=== PATIENT | male | born 1995 | race Caucasian/White ===

== ENCOUNTER 2019-12-18 01:49 | Emergency (ER) | payer MEDICAID, SELFPAY ==
[2019-12-18 01:51] VITALS: BP 192/108; PULSE 76; RESP 24; TEMP 36.6; O2SAT 99; BMI 23.3
[2019-12-18 02:00] VITALS: BP 128/81; PULSE 81; RESP 16; O2SAT 98
[2019-12-18 02:18] LABS: Glucose Urine UA NEG (NEG); Leukocyte Esterase Urine NEG (NEG); Nitrite Urine NEG (NEG); Specific Gravity - Urine >= 1.030 (1.005-1.025); Urine Blood 3+ (NEG); Urine Ketones NEG (NEG); Urine Protein 1+ MG/DL (NEG-TRACE)
[2019-12-18 02:19] LABS: Appearance Urine HAZY; Color Urine PINK
--- NOTE | 2019-12-18 02:28 | PC.NURSE ---
PT TO ROOM WITH C/O RIGHT LOWER ABD PAIN RATING PAIN 10/10. PT CHG INTO GOWN AND AWAITING MD'S EVAL. HL PLACED TO [facility], LABS DRAWN TO LAB. PT MOVING CONSTANTLY IN STRETCHER. PT UP TO RESTROOM AND LEFT URINE SAMPLE TO LAB. PT AWAITING FOR FURTHER ORDERS,
[2019-12-18 02:30] LABS: Basophils Absolute Auto 0.1 X10*3/uL (0.0-0.2); Basophils Percent Auto 0.3 % (0-2); Eosinophils Absolute Auto 0.3 X10*3/uL (0.0-0.4); Eosinophils Percent Auto 1.4 % (0-4); Hematocrit 47.3 % (42-52); Hemoglobin 16.1 g/dl (14.0-18.0); Imm Gran Abs Auto 0.07 X10*3/uL (0.00-0.03); Imm Gran Pct Auto 0.4 % (0.0-0.4); Lymphocytes Percent Auto 36.4 % (20-40); MANUAL DIFF FLAG SCAN; Mean Platelet Volume 10.1 fL (9.4-12.4); Monocytes Absolute Auto 1.8 X10*3/uL (0.1-1.2); Monocytes Percent Auto 9.9 % (2-11); Neutrophils Absolute Auto 9.6 X10*3/uL (2.0-8.3); Neutrophils Percent Auto 51.6 % (45-73); Platelet Count 297 X10*3/uL (160-400); Red Cell Distribution Width 11.7 % (11.0-16.0); SCAN SMEAR FLAG 1; White Blood Count 18.5 X10*3/uL (4.8-10.8)
[2019-12-18 02:39] LABS: Calcium Oxalate Crystals Urine TRACE /LPF; Squamous Epithelial Cell Urine TRACE /LPF; WBC Urine 0 /HPF (0-4)
[2019-12-18 02:39] LABS: Lymphocytes Absolute Auto 6.7 X10*3/uL (1.2-4.9)
[2019-12-18] MEDS: fentaNYL citrate/PF 100 MCG/2 ML VIAL 25 MCG IVPUSH (02:39)
[2019-12-18 02:49] LABS: Prothrombin Time 12.3 SEC (10.8-13.0)
[2019-12-18 02:54] LABS: Anion Gap 15 (12-20); Blood Urea Nitrogen 9 mg/dL (9-16); Calcium 9.1 mg/dL (8.4-10.2); Carbon Dioxide 26 mmol/L (22-29); Chloride 104 mmol/L (96-108); Creatinine Clr Calc Pharmacy 118.5; Estimated Glomerular Filt Rate > 60; Glucose Random 104 mg/dL (60-115); Potassium 3.4 mmol/l (3.3-5.1); Sodium 142 mmol/L (135-145)
[2019-12-18 02:58] LABS: SLIDE REVIEW VERIFIED
--- NOTE | 2019-12-18 03:03 | ED.ABDPAIN ---
HPI - Abdominal Pain General Chief Complaint: Abdominal Pain Stated Complaint: Abd pain Time Seen by Provider: 12/18/19 02:31 Source: patient Mode of arrival: ambulatory Limitations: no limitations History of Present Illness HPI narrative: This is a 24-year-old male who presents with acute onset of right lower quadrant pain approximately 1-2 hours ago it is not been associated with any fever, chills but patient has had nausea and 1 episode of vomiting without any diarrhea or urinary pain/ burning / frequency. Related Data Previous Rx's Medication Instructions Recorded ketorolac 10 mg PO Q6H PRN 5 Days #20 tab 12/18/19 tamsulosin [Flomax] 0.4 mg PO BEDTIME #4 cap 12/18/19 Allergies Allergy/AdvReac Type Severity Reaction Status Date / Time Iodine and Iodide Containing Allergy Rash Verified 12/18/19 02:34 Produc Review of Systems Review of Systems Pertinent positives and negatives as stated in HPI 10 point review of systems is otherwise negative. Physical Exam Vital Signs: Vital Signs: Vital Signs Temp Pulse Resp BP Pulse Ox 12/18/19 04:00 78 16 138/78 100 12/18/19 03:54 74 16 148/78 H 100 12/18/19 03:43 84 16 130/82 98 12/18/19 02:00 81 16 128/81 98 12/18/19 01:51 97.9 F 76 24 H 192/108 H 99 Body Mass Index 23.3 VITAL SIGNS: Reviewed. GENERAL: Well developed, well nourished, moderate distress due to pain. HEAD: Normocephalic/atraumatic, EYES: PERRLA, EOMI intact without pain, no nystagmus/pallor/icterus noted EARS: Ext canals without abnormality, TMs non-bulging and non-erythematous NOSE: Nares patent bilateral OROPHARYNX: no oral lesions noted, posterior pharynx clear and non-erythematous without noted tonsillar enlargement/erythema/exudates NECK: Supple, no adenopathy LUNGS: Normal breath sounds. No adventitious sounds or accessory muscle use. SpO2<> CARDIOVASCULAR: Regular rate and rhythm without noted murmurs, no JVD or lower extremity edema. ABDOMEN: Soft, Right lower quadrant pain with localized rebound, non-distended with bowel sounds. No rigidity. No guarding. No palpable masses or hernias noted MUSCULOSKELETAL: No tenderness, deformities, or effusions noted on gross inspection. EXTREMITIES: No cyanosis, clubbing or edema. SKIN: Inspection of the skin reveals no rashes, ulcerations, jaundice, pallor, or petechiae. NEUROLOGIC: Alert and oriented x 4. Strength and sensation to light touch were grossly intact x 4. Course Course Course Narrative: This is a 24-year-old male with history and clinical presentation most consistent with acute appendicitis or renal colic. Doubt testicular torsion or inguinal hernia. Patient provided with pain medication On review of all laboratory investigations there is a noted leukocytosis and patient was treated with sepsis fluids, blood cultures, lactic acid, but CT scan showing 3 mm obstructing stone at the UVJ and significant improvement in pain after receiving pain medication. Antibiotics are not recommended for this type leukocytosis and patient will be discharged to home in stable condition with a pain regimen. MDM - Abdominal Pain Lab Data Result diagrams: 12/18/19 02:23 12/18/19 02:23 Labs: Lab Results 12/18/19 12/18/19 12/18/19 Range/Units 02:11 02:23 02:23 WBC 18.5 H (4.8-10.8) X10*3/uL RBC 5.20 (4.60-5.80) X10*6/uL Hgb 16.1 (14.0-18.0) g/dl Hct 47.3 (42-52) % MCV 91.0 (80-98) fL MCH 31.0 (27.0-33.0) pg MCHC 34.0 (31.0-36.0) g/dl RDW 11.7 (11.0-16.0) % Plt Count 297 (160-400) X10*3/uL MPV 10.1 (9.4-12.4) fL Immature Gran % (Auto) 0.4 (0.0-0.4) % Neut % (Auto) 51.6 (45-73) % Lymph % (Auto) 36.4 (20-40) % Floyd % (Auto) 9.9 (2-11) % Eos % (Auto) 1.4 (0-4) % Baso % (Auto) 0.3 (0-2) % Lymph # (Auto) 6.7 H (1.2-4.9) X10*3/uL Floyd # (Auto) 1.8 H (0.1-1.2) X10*3/uL Eos # (Auto) 0.3 (0.0-0.4) X10*3/uL Baso # (Auto) 0.1 (0.0-0.2) X10*3/uL Abs Immat Gran (auto) 0.07 H (0.00-0.03) X10*3/uL Absolute Neuts (auto) 9.6 H (2.0-8.3) X10*3/uL Absolute Nucleated RBC 0.000 (0.0-0.012) X10*3/uL Nucleated RBC % (auto) 0.0 (0.0-0.2) /100WBC Smear Tech's Comments VERIFIED PT (10.8-13.0) SEC INR (0.9-1.1) Hold Blue Top Sodium 142 (135-145) mmol/L Potassium 3.4 (3.3-5.1) mmol/l Chloride 104 (96-108) mmol/L Carbon Dioxide 26 (22-29) mmol/L Anion Gap 15 (12-20) BUN 9 (9-16) mg/dL Creatinine 0.85 (0.5-1.4) mg/dL Estim Creat Clear Calc 118.5 Estimated GFR > 60 Random Glucose 104 (60-115) mg/dL Lactic Acid (0.5-2.0) mmol/L Calcium 9.1 (8.4-10.2) mg/dL Urine Color PINK Urine Appearance HAZY Urine pH 6.0 (5.0-8.0) Ur Specific [place] >= 1.030 H (1.005-1.025) Urine Protein 1+ H (NEG-TRACE) MG/DL Urine Glucose (UA) NEG (NEG) MG/DL Urine Ketones NEG (NEG) MG/DL Urine Blood 3+ H (NEG) Urine Nitrite NEG (NEG) Ur Leukocyte Esterase NEG (NEG) Urine RBC 76-150 H (0) /HPF Urine WBC 0 (0-4) /HPF Ur Squamous Epith Cells TRACE /LPF Calcium Oxalate Crystal TRACE /LPF Urine Bacteria NONE /LPF Coronavirus (PCR) (Negative) 12/18/19 12/18/19 12/18/19 Range/Units 02:23 02:51 03:16 WBC (4.8-10.8) X10*3/uL RBC (4.60-5.80) X10*6/uL Hgb (14.0-18.0) g/dl Hct (42-52) % MCV (80-98) fL MCH (27.0-33.0) pg MCHC (31.0-36.0) g/dl RDW (11.0-16.0) % Plt Count (160-400) X10*3/uL MPV (9.4-12.4) fL Immature Gran % (Auto) (0.0-0.4) % Neut % (Auto) (45-73) % Lymph % (Auto) (20-40) % Floyd % (Auto) (2-11) % Eos % (Auto) (0-4) % Baso % (Auto) (0-2) % Lymph # (Auto) (1.2-4.9) X10*3/uL Floyd # (Auto) (0.1-1.2) X10*3/uL Eos # (Auto) (0.0-0.4) X10*3/uL Baso # (Auto) (0.0-0.2) X10*3/uL Abs Immat Gran (auto) (0.00-0.03) X10*3/uL Absolute Neuts (auto) (2.0-8.3) X10*3/uL Absolute Nucleated RBC (0.0-0.012) X10*3/uL Nucleated RBC % (auto) (0.0-0.2) /100WBC Smear Tech's Comments PT 12.3 (10.8-13.0) SEC INR 1.0 (0.9-1.1) Hold Blue Top SEE NOTE Sodium (135-145) mmol/L Potassium (3.3-5.1) mmol/l Chloride (96-108) mmol/L Carbon Dioxide (22-29) mmol/L Anion Gap (12-20) BUN (9-16) mg/dL Creatinine (0.5-1.4) mg/dL Estim Creat Clear Calc Estimated GFR Random Glucose (60-115) mg/dL Lactic Acid 1.4 (0.5-2.0) mmol/L Calcium (8.4-10.2) mg/dL Urine Color Urine Appearance Urine pH (5.0-8.0) Ur Specific [place] (1.005-1.025) Urine Protein (NEG-TRACE) MG/DL Urine Glucose (UA) (NEG) MG/DL Urine Ketones (NEG) MG/DL Urine Blood (NEG) Urine Nitrite (NEG) Ur Leukocyte Esterase (NEG) Urine RBC (0) /HPF Urine WBC (0-4) /HPF Ur Squamous Epith Cells /LPF Calcium Oxalate Crystal /LPF Urine Bacteria /LPF Coronavirus (PCR) NEGATIVE (Negative) Discharge Plan Discharge Clinical Impression: Renal colic Patient Disposition: Home, Self-Care Instructions: Renal Colic (ED) Additional Instructions: 1. Tylenol 1000 mg, orally, every 6 hours as needed for pain control. Do not exceed 4000 mg within 24 hours. 2. Increase fluid hydration especially water and avoid carbonated/caffeinated products. 3. please follow-up with urology at [facility] by calling their office in the morning to establish a follow-up appointment. The patient and/or family acknowledge understanding of results (as applicable), diagnosis, treatment plan, need for follow up, and symptoms that should prompt a return to the emergency room. Prescriptions: New ketorolac 10 mg tablet 10 mg PO Q6H PRN (Reason: pain) 5 Days Qty: 20 RF: 0 tamsulosin [Flomax] 0.4 mg capsule 0.4 mg PO BEDTIME Qty: 4 RF: 0 Referrals: Bill Jerry MD [Physician] - 2 days ( follow-up evaluation for 3 mm stone at the UVJ) [facility] Past Medical History Source: nursing notes reviewed Medical History No known health problems Social History Social History Smoked in Last 30 Days: No Advance Directives: No Advance Directives Information Provided: No
--- NOTE | 2019-12-18 03:05 | CT_ITS ---
EXAMINATION: CT ABDOMEN AND PELVIS WITHOUT CONTRAST CLINICAL INFORMATION: Right lower quadrant pain. COMPARISON: None. TECHNIQUE: Contiguous axial thin section helical images of the abdomen and pelvis were performed without oral or IV contrast. The data set was reformatted in the coronal and sagittal planes and reviewed on an independent workstation. DLP: 386 mGy-cm. FINDINGS: The visualized lung bases are clear. The visualized portions of the heart are unremarkable. The liver is of normal size and attenuation without focal lesions nor intrahepatic biliary ductal dilation. A normal gallbladder is identified. There is no wall thickening or discernible pericholecystic fluid. The spleen, pancreas, adrenal glands are unremarkable. Both kidneys are of normal size and attenuation without nephrolithiasis. There is right grade 2 hydroureteronephrosis secondary to a 3 mm obstructive right UVJ calculus. There is no abdominal free fluid. There is neither mesenteric nor retroperitoneal lymphadenopathy. Normal unopacified loops of small and large bowel are identified. There is no pelvic free fluid. The urinary bladder is unremarkable. There is neither pelvic nor inguinal lymphadenopathy. Bone windows: Neither sclerotic nor lytic bone lesions are identified. CT/CT abdomen pelvis wo con IMPRESSION: Right grade 2 hydroureteronephrosis secondary to a 3 mm obstructive right UVJ calculus. Automated exposure control (Care Dose) Adjustment of the mA and/or kv according to patient size (this includes techniques or standardized protocols for targeted exams where dose is matched to indication / reason for exam; i.e. extremities or head).
--- NOTE | 2019-12-18 03:42 | PC.NURSE ---
PT RESTLESS IN STRETCHER, NS UP AND RUNNING W/O SITE INTACT. PT RATING RIGHT LOWER ABD PAIN 08/23. MD AWARE. ADDITIONAL LABS BEING DRAWN AT THIS TIME. WILL CONTINUE TO MONITOR PT.
[2019-12-18 03:43] VITALS: BP 130/82; PULSE 84; RESP 16; O2SAT 98
[2019-12-18 03:46] LABS: Lactic Acid 1.4 mmol/L (0.5-2.0)
[2019-12-18] MEDS: 0.9 % Sodium Chloride 1,920 ML 999 ML IV (03:50)
[2019-12-18] MEDS: Ketorolac Tromethamine 15 MG/ML VIAL IVPUSH (03:50)
[2019-12-18 03:54] VITALS: BP 148/78; PULSE 74; RESP 16; O2SAT 100
--- NOTE | 2019-12-18 03:55 | PC.NURSE ---
PER PT'S REQUEST. STAFF WENT TO TO UPDATE JEN ROJAS. PT MEDICATED PT WITH PAIN MEDS PER EMAR. PT NOW RATING LOWER ABD PAIN 04/23. PT ALERT, RESPIRATIONS EASY, N/L. SKIN W/D. PT AWAITING FOR FURTHER ORDERS AND RESTING QUIETLY IN STRETCHER,
[2019-12-18 04:00] VITALS: BP 138/78; PULSE 78; RESP 16; O2SAT 100
[2019-12-18 04:14] LABS: SARS COV2 PCR INHOUSE NEGATIVE (Negative)
== END 2019-12-18 04:43 | disposition home or self-care (01) ==
PROVIDERS: Emergency Provider Student in an Organized Health Care Education/Training Program
DX: N23 Unspecified renal colic (principal); Z20.828 Contact with and (suspected) exposure to other viral communicable diseases; Z79.899 Other long term (current) drug therapy
CPT/HCPCS: 36415; 74176; 80048; 81001; 83605; 85025; 85610; 87040; 87147; 96374; 96375; 99284; J1885; J3010; U0003

== ENCOUNTER 2020-01-18 15:38 | Outpatient (REF) | payer MEDICAID, SELFPAY | END 2020-01-18 15:39 | disposition home or self-care (01) | LOC: HO.LAB 15:38 | PROVIDERS: Visit Provider Internal Medicine | DX: Z20.828 Contact with and (suspected) exposure to other viral communicable diseases (principal) | CPT/HCPCS: C9803; U0003 ==

== ENCOUNTER 2020-03-17 14:31 | Outpatient (REF) | payer MEDICAID, SELFPAY | END 2020-03-17 14:32 | disposition home or self-care (01) | LOC: HO.LAB 14:31 | PROVIDERS: Visit Provider Internal Medicine | DX: Z20.822 Contact with and (suspected) exposure to COVID-19 (principal) | CPT/HCPCS: 36415; C9803; U0003; U0005 ==

== ENCOUNTER 2020-11-22 12:53 | Emergency (ER) | payer MEDICAID, SELFPAY ==
[2020-11-22 13:56] VITALS: BP 129/74; PULSE 69; RESP 18; TEMP 36.6; O2SAT 99; BMI 22.3
--- NOTE | 2020-11-22 15:04 | ED_ITS ---
HPI - General Adult General Chief complaint: General Medical Stated complaint: hemorrhoid Time Seen by Provider: 11/22/20 14:37 Source: patient Mode of arrival: ambulatory Limitations: no limitations History of Present Illness HPI narrative: Patient had a sexual encounter on Tuesday evening with his male partner. He was receiving anal sex and did not use lubrication. [place] some pain during this encounter and after when wiping he noticed some blood on the toilet paper. He has had pain at the site since. He has one male partner. Uses condoms some of the time. No h/o STI Related Data Previous Rx's Medication Instructions Recorded ketorolac 10 mg tablet 10 mg PO Q6H PRN 5 Days #20 tab 12/18/19 tamsulosin 0.4 mg capsule (Flomax) 0.4 mg PO BEDTIME #4 cap 12/18/19 prednisone 20 mg tablet 20 mg PO DAILY #5 tab 12/19/19 doxycycline monohydrate 100 mg 100 mg PO BID #14 cap 11/22/20 capsule valacyclovir 1 gram tablet 1,000 mg PO BID #14 tab 11/22/20 (Valtrex) Allergies Allergy/AdvReac Type Severity Reaction Status Date / Time Iodine and Iodide Containing Allergy Rash Verified 12/18/19 02:34 Produc Review of Systems Review of Systems: Yes all other systems are reviewed and are negative Constitutional: Constitutional: Reports no additional constitutional complaints, Denies body ache(s), Denies chills, Denies fever(s), Denies headache(s) and Denies weakness Eyes: Eyes: Reports no additional eye complaints and Denies change in vision ENT: Reports system reviewed and no additional complaints, except as documented, Denies dizziness, Denies headache(s), Denies nasal congestion, Denies nasal discharge and Denies neck pain Cardiovascular: Cardiovascular: Reports no additional cardiovascular complaints, Denies chest pain, Denies leg edema and Denies dyspnea Respiratory: Respiratory: Reports no additional respiratory complaints, Denies cough and Denies dyspnea Gastrointestinal: Gastrointestinal: Reports no additional gastrointestinal complaints, Denies abdominal pain, Denies diarrhea, Denies nausea and Denies vomiting Comments: rectal pain blood when wiping rectum Genitourinary: Genitourinary: Denies urinary incontinence Musculoskeletal: Musculoskeletal: Reports no additional musculoskeletal complaints, Denies back pain, Denies arthralgias, Denies joint swelling, Denies neck pain, Denies numbness and Denies tingling Integumentary/Breasts: Skin/Breast: Reports system reviewed and no additional complaints, except as docu and Denies rash Neurologic: Reports system reviewed and no additional complaints, except as documented, Denies Abnormal speech present, Denies dizziness, Denies headache(s), Denies numbness, Denies tingling and Denies weakness PMFSH Past Medical History Attestation statement: The following information was validated with the patient. Source: old records reviewed and nursing notes reviewed Medical History No known health problems Social History Social History Advance Directives: No Advance Directives Information Provided: No Physical Exam Vital Signs: Vital Signs: Last Vital Signs Temp 97.9 F 11/22/20 13:56 Pulse 69 11/22/20 13:56 Resp 18 11/22/20 13:56 BP 129/74 11/22/20 13:56 Pulse Ox 99 11/22/20 13:56 Body Mass Index 22.3 Const: General: cooperative, healthy appearing, comfortable and no acute distress Orientation/consciousness: patient oriented x3 Limitations: no limitations HENMT: Head: Yes normal to inspection Ears: hearing grossly normal bilaterally General nose exam: Normal external nose present Face and sinus: Yes normal facial exam Mouth: Normal oral and palatal mucosa present Throat: Yes posterior oropharynx normal Eyes: General: appearance normal, both eyes and all related structures Pupils: Equal, round and reactive pupils present Neck: Neck: Yes normal visual inspection Chest: Chest palpation & inspection: normal inspection of the chest Resp: Effort & Inspection: normal respiratory effort Auscultation: clear to auscultation bilaterally Cardio: Rate: regular rate Rhythm: regular rhythm Peripheral pulses: Peripheral pulses 2+ throughout GI: Other: Cassie QUINTANILLA present Visual inspection of anus shows NO hemorrhoid. At the the 12 o clock position there is a solitary lesion with erythematous base. No additional lesions. Exquisitely tender per patient. NO active bleeding noted. Inspection: Yes normal to inspection Palpation (GI): Soft to palpation and nontender Auscultation: normal bowel sounds Back/Spine/Pelvis: Thoracic/Lumbar Spine: thoracic and lumbar spine normal to inspection Skin: General skin exam: no rashes or lesions noted Neuro: General: patient oriented x3, no focal motor deficits and normal sensation to monofilament Cranial nerves: Yes Equal, round and reactive pupils present Cognition (Neuro): normal cognition Speech: No Abnormal speech present Gait exam (Neuro): Normal gait present Motor exam (neuro): 5/5 motor strength present throughout Extrem: General: Yes normal to inspection Course Course Course Narrative: Painful anus w/ intermittent blood noted on TP after receiving anal sex Tuesday evening. On exam patient has a solitary lesion noted on the anus. We discussed this may be HSV or a fissure as patient tells me he felt pain during intercourse and did not use lubrication. Viral culture obtained from lesion. Requesting STI testing and treatment. Will send CT NG (given ceftriaxone 500mg IM x1 in ED. Doxy sent to pharmacy) Sent HIV and chlaymdia testing (d/w with patient and will hold on treatment. Reviewed worrisome signs/symptoms with patient and when to return to ED. Comfortable with discharge home. Medical Decision Making Medical Records Medical records reviewed: Yes I reviewed the patient's medical records. Lab Data Lab results reviewed: Yes I reviewed the patient's lab results. Discharge Plan Discharge Clinical Impression: Concern about STD in male without diagnosis, Anal lesion Patient Disposition: Home, Self-Care Instructions: Sexually Transmitted Diseases (ED), Safe Sex Practices (ED), Rectal Pain (ED) Additional Instructions: This may be a herpes lesion. We sent a test for this. We will call you if it is positive. We are treating you prophylactically It may also be a fissure which is a crack in the skin which may be caused by no lubrication during intercourse. if this is the case it will heal on its own You were tested for all STD's. We will call you if positive. We are treating you prophylactically with ceftriaxone (you received this as a shot in the ED) and doxycycline You should abstain from sexual intercourse until your test results are back and the lesion is healed Prescriptions: New valacyclovir [Valtrex] 1 gram tablet 1,000 mg PO BID Qty: 14 RF: 0 doxycycline monohydrate 100 mg capsule 100 mg PO BID Qty: 14 RF: 0 No Action prednisone 20 mg tablet 20 mg PO DAILY Qty: 5 RF: 0 ketorolac 10 mg tablet 10 mg PO Q6H PRN (Reason: pain) 5 Days Qty: 20 RF: 0 tamsulosin [Flomax] 0.4 mg capsule 0.4 mg PO BEDTIME Qty: 4 RF: 0 Referrals: Physician,None [Primary Care Provider] - 2 days
[2020-11-22] MEDS: cefTRIAXone sodium 500 MG, Lidocaine HCl 1 % MPF 1 ML IM (15:25)
[2020-11-24 00:56] LABS: CT PCR NOT DETECTED (Not Detect.); NG PCR DETECTED (Not Detect.)
[2020-11-24 09:21] LABS: Syphilis Screen Nonreactive (Nonreactive)
[2020-11-25 08:58] LABS: HIV AB/AG Nonreactive (Nonreactive); HIV Num 1 0.07 S/CO (0.00-0.99)
== END 2020-11-22 15:43 | disposition home or self-care (01) ==
PROVIDERS: Nurse Practitioner Family; Emergency Provider Emergency Medicine Emergency Medical Services
DX: K62.9 Disease of anus and rectum, unspecified (principal); K62.89 Other specified diseases of anus and rectum; Z20.2 Contact with and (suspected) exposure to infections with a predominantly sexual mode of transmission; Z79.899 Other long term (current) drug therapy
CPT/HCPCS: 36415; 86780; 87255; 87389; 87491; 87591; 96372; 99283; 99284; J0696

== ENCOUNTER 2022-01-22 18:24 | Emergency (ER) | payer MEDICAID, SELFPAY ==
[2022-01-22 19:08] VITALS: BP 151/92; PULSE 94; RESP 18; TEMP 37.8; O2SAT 98; BMI 21.6
--- NOTE | 2022-01-22 19:09 | ED.GENADULT ---
HPI - General Adult General Chief complaint: Nausea/Vomiting/Diarrhea Stated complaint: vomit, coughing, covid and rsv test Time Seen by Provider: 01/22/22 21:24 Source: patient Mode of arrival: ambulatory Limitations: no limitations History of Present Illness HPI narrative: 26-year-old male with no known medical history presents 2 days of body aches and pains, malaise, fatigue, shortness of breath, dry cough, myalgias, chest discomfort with coughing. Patient reports decreased appetite and poor p.o. intake. No known sick contacts. Not vaccinated against COVID flu. 02/17 PPD smoker. Denies chest pain, headache, vision changes, dizziness, weakness, nausea, vomiting, abdominal pain. Related Data Previous Rx's Medication Instructions Recorded ketorolac 10 mg tablet 10 mg PO Q6H PRN pain 5 days #20 12/18/19 tabs tamsulosin 0.4 mg capsule (Flomax) 0.4 mg PO BEDTIME #4 caps 12/18/19 prednisone 20 mg tablet 20 mg PO DAILY #5 tabs 12/19/19 doxycycline monohydrate 100 mg 100 mg PO BID #14 caps 11/22/20 capsule valacyclovir 1 gram tablet 1,000 mg PO BID #14 tabs 11/22/20 (Valtrex) albuterol sulfate 90 mcg/actuation 2 inh inhalation Q4-6H PRN 01/22/22 breath activated powder inhaler shortness of breath or wheezing #1 ea Allergies Allergy/AdvReac Type Severity Reaction Status Date / Time Iodine and Iodide Containing Allergy Rash Verified 01/22/22 19:12 Produc Review of Systems Review of Systems: Constitutional : No Weight loss, No Fever, No Chills, + Fatigue, + Malaise ENT/Mouth : No sore throat, No Rhinorrhea Eyes: No Eye Pain, No Swelling, No Redness Cardiovascular : No Chest Pain, + SOB, No Dyspnea on Exertion, No Orthopnea, No Edema, No Palpitations Respiratory : + Cough, No Sputum, No Wheezing Gastrointestinal : No Nausea, No Vomiting, No Diarrhea, No Constipation, No abdominal Pain, No Hematochezia, No Melena Genitourinary : No Dysuria, No Urinary Frequency, No Hematuria, Musculoskeletal : No joint pain, + Myalgias, No Joint Swelling Skin : No Skin Lesions, No rash Neuro : No Weakness, No Numbness, No Dizziness, No Headache Psych : No Anxiety/Panic, No Depression All other systems reviewed and are negative Yes all other systems are reviewed and are negative [facility] Past Medical History Medical History No known health problems Physical Exam ED Vital Signs: Vital Signs - 24 hr 01/22/22 19:08 Temperature 100.1 F Pulse Rate 94 Respiratory Rate 18 Blood Pressure 151/92 H Pulse Oximetry 98 Oxygen Delivery Method Room Air BMI result Body Mass Index 21.6 Course Course Course Narrative: RME: 26-year-old male with no known medical history presents 2 days of body aches and pains, malaise, fatigue, shortness of breath, dry cough, myalgias, chest discomfort with coughing. Patient reports decreased appetite and poor p.o. intake. No known sick contacts. Not vaccinated against COVID flu. 02/17 PPD smoker. Physical exam benign vital signs stable T: 100.1 F ( Tylenol ordered). Appears comfortable Plan at this time flu/COVID/RSV. Reevaluation(s) Reevaluation #1: Patient noted to be positive for influenza. Educated him on treatment plan. Explained to him he does not qualify for Tamiflu as symptoms have been ongoing for greater than 24 hours. Will discharge him home with an albuterol inhaler. Educated on supportive measures advised him to return with any new or worsening symptoms. At time of discharge patient is saturating 99% even after ambulation. Patient denies chest pain, shortness of breath. Time: 21:30 Medical Decision Making Medical Decision Making [facility] Narrative: 2127 26-year-old presents flu-like symptoms x3 days Physical examination benign. Patient's temperature a 100.1 degrees. All other vital signs stable Likely viral infection. I do not suspect ACS, PE or pneumonia. With if Tylenol for symptoms. Will obtain viral panels. Discharge Plan Discharge Clinical Impression: Influenza A Patient Disposition: Home, Self-Care Instructions: Influenza (ED), Flu Shot (Vaccine) for Adults (ED) Additional Instructions: Take your medications as prescribed. If you were prescribed antibiotics today, it is important that you take your medication to their entirety, do not skip any doses, do not finish them early. Follow-up with your primary care provider this week. Return to the emergency department with new or worsening symptoms. Such as fevers, chills, chest pain, shortness of breath, nausea, vomiting, dizziness, headache, vision changes, lethargy In case of emergency call 911 You tested positive for influenza. However, due to length of symptoms he did not qualify for Tamiflu. You can take ibuprofen every 6 hours, Tylenol every 4 as needed for pain or discomfort. Inhaler has been sent to your pharmacy use this for shortness of breath. Prescriptions: New albuterol sulfate 90 mcg/actuation aerosol powdr breath activated 2 inh inhalation Q4-6H PRN (Reason: shortness of breath or wheezing) Qty: 1 0RF No Action prednisone 20 mg tablet 20 mg PO DAILY Qty: 5 0RF ketorolac 10 mg tablet 10 mg PO Q6H PRN (Reason: pain) 5 Days Qty: 20 0RF tamsulosin [Flomax] 0.4 mg capsule 0.4 mg PO BEDTIME Qty: 4 0RF valacyclovir [Valtrex] 1 gram tablet 1,000 mg PO BID Qty: 14 0RF doxycycline monohydrate 100 mg capsule 100 mg PO BID Qty: 14 0RF Referrals: Physician,Unknown J [Primary Care Provider] - 2 days Stand Alone Forms: Work/School Release
[2022-01-22 20:19] LABS: Influenza A PCR POSITIVE (Negative); Influenza B PCR NEGATIVE (Negative); Resp Syncy Virus RNA Qual PCR NEGATIVE (Negative); SARS COV2 PCR INHOUSE NEGATIVE (Negative)
[2022-01-22] MEDS: Acetaminophen 325 MG TABLET 650 MG PO (21:34)
== END 2022-01-22 21:50 | disposition home or self-care (01) ==
PROVIDERS: Physician Assistant; Emergency Provider Emergency Medicine
DX: J10.1 Influenza due to other identified influenza virus with other respiratory manifestations (principal); R11.2 Nausea with vomiting, unspecified; R19.7 Diarrhea, unspecified; R06.02 Shortness of breath; R05.9 Cough, unspecified; M79.10 Myalgia, unspecified site; R07.89 Other chest pain; Z20.822 Contact with and (suspected) exposure to COVID-19; Z79.899 Other long term (current) drug therapy
CPT/HCPCS: 0241U; 99283

== ENCOUNTER 2022-07-05 05:07 | Emergency (ER) | payer MEDICAID, SELFPAY ==
[2022-07-05 05:31] VITALS: BP 130/84; PULSE 70; RESP 18; TEMP 37; O2SAT 99; BMI 25.5
--- NOTE | 2022-07-05 05:51 | ED_ITS ---
HPI - Dental/Oral General Chief complaint: Dental/Oral Stated complaint: Chipped tooth Time Seen by Provider: 07/05/22 05:39 Source: patient Mode of arrival: ambulatory Limitations: no limitations History of Present Illness HPI Narrative: Patient comes to the emergency room complaining of a chipped tooth in the mandibular side on the left. It has been ongoing for about a year. However, over the last few days, he has been having pain which has not happened before. Patient has an appointment pending with the dentist. Related Data Previous Rx's Medication Instructions Recorded ketorolac 10 mg tablet 10 mg PO Q6H PRN pain 5 days #20 12/18/19 tabs tamsulosin 0.4 mg capsule (Flomax) 0.4 mg PO BEDTIME #4 caps 12/18/19 prednisone 20 mg tablet 20 mg PO DAILY #5 tabs 12/19/19 doxycycline monohydrate 100 mg 100 mg PO BID #14 caps 11/22/20 capsule valacyclovir 1 gram tablet 1,000 mg PO BID #14 tabs 11/22/20 (Valtrex) albuterol sulfate 90 mcg/actuation 2 inh inhalation Q4-6H PRN 01/22/22 breath activated powder inhaler shortness of breath or wheezing #1 ea penicillin V potassium 500 mg 500 mg PO TID #30 tabs 07/05/22 tablet Allergies Allergy/AdvReac Type Severity Reaction Status Date / Time Iodine and Iodide Containing Allergy Rash Verified 07/05/22 05:30 Produc Review of Systems Review of Systems: Constitutional : No Weight loss, No Fever, No Chills, No Night Sweats, No Fatigue, No Malaise ENT/Mouth : Complaining of dental pain left mandibular side No Hearing loss, No Ear Pain, No Nasal Congestion, No Sinus Pain, No Hoarseness, No sore throat, No Rhinorrhea, No Swallowing Difficulty Eyes: No Eye Pain, No Swelling, No Redness, No Foreign Body, No Discharge, No Vision Changes Cardiovascular : No Chest Pain, No SOB, No Dyspnea on Exertion, No Orthopnea, No Edema, No Palpitations Respiratory : No Cough, No Sputum, No Wheezing, No Smoke Exposure, No Dyspnea Gastrointestinal : No Nausea, No Vomiting, No Diarrhea, No Constipation, No abdominal Pain, No Hematochezia, No Melena Genitourinary : no irregular bleeding, No Dysuria, No Urinary Frequency, No Hematuria, No Urinary Incontinence, No Urgency, No Flank Pain, No Urinary Flow Changes, No Hesitancy Musculoskeletal : No joint pain, No Myalgias, No Joint Swelling Skin : No Skin Lesions, No rash Neuro : No Weakness, No Numbness, No Paresthesias, No Loss of Consciousness, No Dizziness, No Headache Psych : No Anxiety/Panic, No Depression, No SI/HI/AH/VH, No Social Issues, Heme/Lymph: No Bruising, No Bleeding,No Lymphadenopathy Endocrine : No Polyuria, No Polydipsia, No Temperature Intolerance [facility] Past Medical History Medical History No known health problems Social History Social History Advance Directives: No Advance Directives Information Provided: No Physical Exam Vital Signs: Vital Signs: Last Vital Signs Temp 98.6 F 07/05/22 05:31 Pulse 70 07/05/22 05:31 Resp 18 07/05/22 05:31 BP 130/84 07/05/22 05:31 Pulse Ox 99 07/05/22 05:31 O2 Del Method Room Air 07/05/22 05:31 BMI result Body Mass Index 25.5 Const: Other: Appearance: Alert. Oriented X3. No acute distress. Eyes: Pupils equal, round and reactive to light. ENT: Pharynx normal. Poor dentition is specially in the mandibular side on the left, no obvious abscesses that could possibly be drained Neck: Normal inspection. Neck supple. No lymph nodes noted. No crepitus CVS: Normal heart rate and rhythm. Pulses normal. Normal S1 and S2 Respiratory: No respiratory distress. Breath sounds normal. No Wheezing. No rales Abdomen: Soft and nontender. No rigidity. No distention. Skin: Skin warm and dry. Normal skin color. Normal skin turgor. Extremities: No lower extremity edema. No Lacerations. No Rash Neuro: Oriented X 3. No motor deficit. No sensory deficit. Moving all extremities. No slurred speech. CN 2 through 12 grossly intact Psych: calm, cooperative, normal affect Medical Decision Making Medical Decision Making MDM Narrative: -patient was given 1 dose of IM Toradol and p.o. penicillin the emergency room. Patient will follow up with his dentist Discharge Plan Discharge Clinical Impression: Toothache Patient Disposition: Home, Self-Care Instructions: Toothache (ED) Additional Instructions: Please follow-up with your primary care physician tomorrow. If you have any worsening or new symptoms, please return to the emergency room or call 911 Prescriptions: New penicillin V potassium 500 mg tablet 500 mg PO TID Qty: 30 0RF No Action prednisone 20 mg tablet 20 mg PO DAILY Qty: 5 0RF ketorolac 10 mg tablet 10 mg PO Q6H PRN (Reason: pain) 5 Days Qty: 20 0RF tamsulosin [Flomax] 0.4 mg capsule 0.4 mg PO BEDTIME Qty: 4 0RF valacyclovir [Valtrex] 1 gram tablet 1,000 mg PO BID Qty: 14 0RF doxycycline monohydrate 100 mg capsule 100 mg PO BID Qty: 14 0RF albuterol sulfate 90 mcg/actuation aerosol powdr breath activated 2 inh inhalation Q4-6H PRN (Reason: shortness of breath or wheezing) Qty: 1 0RF
[2022-07-05] MEDS: Ketorolac Tromethamine 60 MG/2 ML VIAL IM (05:59)
[2022-07-05] MEDS: Penicillin V Potassium 250 MG TABLET 500 MG PO (05:59)
== END 2022-07-05 06:06 | disposition home or self-care (01) ==
PROVIDERS: Emergency Provider Emergency Medicine
DX: K08.89 Other specified disorders of teeth and supporting structures (principal)
CPT/HCPCS: 96372; 99283; 99284; J1885

== ENCOUNTER 2022-10-10 21:32 | Emergency (ER) | payer OTHER, SELFPAY ==
[2022-10-10 21:41] VITALS: BP 132/88; PULSE 93; RESP 18; TEMP 36.6; O2SAT 97; BMI 24.1
--- OUTSIDE RECORDS SUMMARY | 2022-10-10 22:55 | XMS_ITS | Continuity of Care Document ---
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 Phone Not on Staff, PCP Primary Care Physician Unavail able Encounter [facility] Date(s): 03/16/22 - 03/16/[address] [id number]- Discharge Disposition: A-D/C Home Attending Physician: Jorge Moss MD Admitting Physician: Jorge Moss MD Referring Physician: Not on Staff, Referring MD Allergies, Adverse Reactions, Alerts Substance Reaction Severity Status iodine topical Active Medications ofloxacin 0.3% ophthalmic solution 2 drops, Eyes, Both, 4 times a day, for 5 days, # 10 mL, 0 Refills, Acute 03/21/22 21:14:00 EST, 03/16/22 21:14:00 EST, Solution, [id number], Partial fill upon patient request if theprescription is for a schedule II opioid drug., 2 d... Start Date: 03/16/22 Stop Date: 03/21/22 Status: Ordered Vital Signs Most recent to oldest [Reference Range]: 1 2 Height 165 cm (03/16/22 7:22 PM) 165 cm (03/16/22 7:20 PM) Weight 60 kg (03/16/22 7:22 PM) 60 kg (03/16/22 7:20 PM) Oxygen Saturation [94-100 %] 99 % (03/16/22 7:20 PM) Pulse Rate [55-90 bpm] 89 bpm (03/16/22 7:20 PM) Body Mass Index [18.5-24.99 kg/m2] 22.04 kg/m2 (03/16/22 7:20 PM) Blood Pressure [90-138/55-84 mm Hg] 136/ 78mm Hg (03/16/22 7:20 PM) Respiratory Rate [16-30 br/min] 18 br/mi n (03/16/22 7:20 PM) Temperature [96.8-100.4 DegF] 98.3 DegF (03/16/22 7:20 PM) Dry Weight 60 kg (03/16/22 7:22 PM) 60 kg (03/16/22 7:20 PM) Social History Social History Type Response Smoking Status Never (less than 100 in lifetime) entered on: 07/24/18 Sex Note * Keli Garner: PERFORM, SIGN, VERIFY Event Display: Patient Education Handout Authored Date: [id number] * Keli Garner: PERFORM Event Display: Patient Education Leaflets Authored Date: [id number] Corneal Abrasion ?? [id number] Corneal Abrasion You have a scratch or scrape (abrasion) on your cornea. The cornea is the protective covering in the front of the eye. It helps focus light on the retina. This sensitive area is very painful when injured. Your eye may be light sensitive and make tears frequently. Also, your vision may be blurry until the injury heals. This part of the body heals quickly. You can expect the pain to go away within 24 to 48 hours. If the abrasion is large or deep, your healthcare provider may apply an eye patch, although this is not always done. Antibiotic ointment or eye drops may also be used to prevent infection. Numbing drops may be used to relieve the pain temporarily so that your eyes can be examined., But these drops can???t be prescribed for home use because that would prevent healing and lead to more serious problems. Also, if you can???t feel your eye, there is a chance of accidentally injuring it further without knowing it. Home care ??? A cold pack may be applied over the eye (or eye patch) for 20 minutes at a time to reduce pain. To make a cold pack, put ice cubes in a plastic bag that seals at the top. Wrap the bag in a clean, thin towel or cloth. ??? You may use acetaminophen or ibuprofen to control pain unless another pain medicine was prescribed. If you have chronic liver or kidney disease, talk with your healthcare provider before using these medicines. Also talk with your provider if you have ever had a stomach ulcer or gastrointestinal bleeding. ??? Rest your eyes and don???t read until symptoms are gone. ??? If you use contact lenses, don???t wear them until all symptoms are gone. ??? If your vision is affected by the corneal abrasion or if an eye patch was applied, don???t drive a motor vehicle oroperate machinery until all symptoms are gone. You may have trouble judging distances using only one eye. ??? If your eyes are sensitive to light, try wearing sunglasses. Or stay indoors until symptoms go away. ?? Follow-up care Follow up with your healthcare provider, or as advised. ??? If no patch was put on your eye and thepain continues for more than 48 hours, you should have another exam. Contact your healthcare provider to arrange this. ??? If your eye was patched and you were asked to remove the patch yourself, contact your healthcare provider if you still have pain after the patch is removed. ??? If you were given a return appointment for patch removal and re-exam, be sure to keep the appointment. Leaving the patch in place longer than advised could be harmful. ?? When to seek medical advice Call your healthcare provider right away if any of the following occur: ??? Eye pain gets worse or does not get better after 24 hours ??? Discharge from the eye ??? Redness of the eye or swelling of the eyelids gets worse ??? Vision gets worse ??? Symptoms get worse after the abrasion has healed ?? Last Reviewed Date: 2021 ?? 6221-4173 [employer]. All rights reserved. This information is not intended as a substitute for professional medical care. Always follow your healthcare professional's instructions. ?? Patient Care team information Care Team Personnel Name: Not on Staff, PCP Position: [facility] Physician (General Medicine) Member Role: PCP Name: Cinthya Rosales RN Position: [facility] ED RN W/OE and Tasks Member Role: Research Name: Jorge Moss MD Position: [facility] ED Medicine MD Member Role: Admitting Physician Address: Address: [address] [place] [address] Emergency Medicine [address] Name: Keli Garner Position: [facility] Associate Professional Member Role: Physician Jockey Valet Address: Address: [address] [place] [address] [place] [address]- [place] Care Team Related Persons Name: GEORGE CURIEL Address: home [address] [place] [id number] Name: KARLENE CURIEL Address: home [address] [place] [id number] Name: RAY CURIEL Address: home [address] [address] Name: GEORGE JUAREZ Address: home [address] [place] [id number]
--- OUTSIDE RECORDS SUMMARY | 2022-10-10 22:55 | XMS_ITS | Continuity of Care Document ---
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 Phone Not on Staff, PCP Primary Care Physician Unavail able Encounter [facility] Date(s): 10/09/19 - 10/09/[address] [address]- [facility] Encounter Diagnosis Superficial abrasion(Final) - 10/09/19 Discharge Disposition: A-D/C Home Attending Physician: Shahbaz Lopez DO Admitting Physician: Shahbaz Lopez DO Referring Physician: Not on Staff, Referring MD Allergies, Adverse Reactions, Alerts Substance Reaction Severity Status iodine topical Active Medications No Known Medications Vital Signs Most recent to oldest [Reference Range]: 1 Height 165 cm (10/09/19 1:29 AM) Weight 68.4 kg (10/09/19 1:29 AM) Oxygen Saturation [94-100 %] 99 % (10/09/19 1:29 AM) Pulse Rate [55-90 bpm] 71 bpm (10/09/19 1:29 AM) Blood Pressure [90-138/55-84 mm Hg] 125/ 76mm Hg (10/09/19 1:29 AM) Respiratory Rate [16-30 br/min] 16 br/mi n (10/09/19 1:29 AM) Temperature [96.8-100.4 DegF] 97.9 DegF (10/09/19 1:29 AM) Mode of Delivery (Oxygen) Room air (10/09/19 1:29 AM) Temperature Route Oral (10/09/19 1:29 AM) Dry Weight 68.4 kg (10/09/19 1:29 AM) Weight Obtained Via Standing scale (10/09/19 1:29 AM) Dry Weight Obtained Via Standing scale (10/09/19 1:29 AM) Social History Social History Type Response Smoking Status Never (less than 100 in lifetime) entered on: 07/24/18 Sex
--- NOTE | 2022-10-10 23:35 | ED.DENTAL ---
HPI - Dental/Oral General Chief complaint: Dental/Oral Stated complaint: mouth pain Time Seen by Provider: 10/10/22 22:56 Source: patient and family Mode of arrival: ambulatory Limitations: no limitations History of Present Illness HPI Narrative: Diffuse mouth pain, gum pain, widespread dental decay patient with longstanding dental issue having problem to find a dentist accept his insurance. No fever, no chills for Related Data Previous Rx's Medication Instructions Recorded ketorolac 10 mg tablet 10 mg PO Q6H PRN pain 5 days #20 12/18/19 tabs tamsulosin 0.4 mg capsule (Flomax) 0.4 mg PO BEDTIME #4 caps 12/18/19 prednisone 20 mg tablet 20 mg PO DAILY #5 tabs 12/19/19 doxycycline monohydrate 100 mg 100 mg PO BID #14 caps 11/22/20 capsule valacyclovir 1 gram tablet 1,000 mg PO BID #14 tabs 11/22/20 (Valtrex) albuterol sulfate 90 mcg/actuation 2 inh inhalation Q4-6H PRN 01/22/22 breath activated powder inhaler shortness of breath or wheezing #1 ea penicillin V potassium 500 mg 500 mg PO TID #30 tabs 07/05/22 tablet amoxicillin 500 mg tablet 500 mg PO BID #20 tabs 10/10/22 ibuprofen 800 mg tablet 800 mg PO Q8H PRN pain #20 tabs 10/10/22 Allergies Allergy/AdvReac Type Severity Reaction Status Date / Time Iodine and Iodide Containing Allergy Rash Verified 10/10/22 21:41 Produc Review of Systems Review of Systems: All other systems are reviewed and are negative Constitutional: Reports as per HPI and Reports no additional constitutional complaints Eyes: Reports as per HPI and Reports no additional eye complaints Reports system reviewed and no additional complaints, except as documented Cardiovascular: Reports as per HPI and Reports no additional cardiovascular complaints Respiratory: Reports as per HPI and Reports no additional respiratory complaints Gastrointestinal: Reports as per HPI and Reports no additional gastrointestinal complaints Genitourinary: Reports no additional female genitourinary complaints Musculoskeletal: Reports no additional musculoskeletal complaints Skin/Breast: Reports system reviewed and no additional complaints, except as docu Psychiatric: Reports no additional psychiatric complaints Endocrine: Reports no additional endocrine complaints Hematologic/Lymphatic: Reports no additional hematologic/lymphatic complaints Allergic/Immunologic: Reports no additional allergic/immunologic complaints Reports system reviewed and no additional complaints, except as documented and Reports Abnormal speech present [facility] Past Medical History Medical History No known health problems Social History Social History Advance Directives: No Advance Directives Information Provided: No Physical Exam Vital Signs: Vital Signs: Last Vital Signs Temp 97.8 F 10/10/22 21:41 Pulse 93 10/10/22 21:41 Resp 18 10/10/22 21:41 BP 132/88 10/10/22 21:41 Pulse Ox 97 10/10/22 21:41 O2 Del Method Room Air 10/10/22 21:41 BMI result Body Mass Index 24.1 Vital signs have been reviewed as appeared to be correct. Blood pressure normal. Heart rate normal. Respiration rate normal. Temperature normal. Oxygen saturation normal. Appearance: Alert. Oriented X3. No acute distress. Head: Normal external exam. Normocephalic. Atraumatic. No Herrera signs noted. No raccoon eyes noted. Dental exam: Widespread gum swelling with tenderness, with widespread dental decay, no discrete dental abscess. Eyes: PERRLA. EOMI. Conjunctiva and sclera normal. Eyelids normal. ENT: TM's Normal. Pharynx normal. Uvula midline. Moist mucous membranes. No trismus noted. No drooling noted. No muffled voice noted. Neck: Normal inspection. Neck supple. FROM. No adenopathy. Thyroid Normal. No meningeal signs. No neck mass noted. CVS: Normal heart rate and rhythm. Heart sound normal. No murmurs noted. Pulses normal throughout. Respiratory: No respiratory distress. Painless inspiration. Breath sounds normal. No wheezes/rales/rhonchi noted. Chest nontender. No accessory muscle usage noted or decreased air movement noted. Abdomen: Soft and nontender. Bowel sounds normal in all 4 quadrants. No distention noted. No organomegaly noted. No visible injury noted. Back: No CVA tenderness. Full range of motion noted. Skin: Skin warm and dry. Normal skin color. Normal skin turgor. No rashes/lesions/lacerations noted. Extremities: No lower extremity edema. Extremities exhibit normal range of motion. Extremities nontender. Neuro: Oriented X 3. Cranial nerve exam: II-XII are grossly intact No motor deficit. No sensory deficit. Reflexes normal. Medical Decision Making Medical Decision Making MDM Narrative: Widespread gingivitis and dental decay will start the patient on amoxicillin/NSAIDs and follow-up with dentist. Differential Diagnosis Differential Diagnoses: The differential diagnosis associated with the presentation includes (Gingivitis, dental abscess, dental decay) Discharge Plan Discharge Clinical Impression: Toothache, Dental caries, Gingivitis Patient Disposition: Home, Self-Care Instructions: Gingivitis (ED) Additional Instructions: Follow-up with your dentist [facility] Prescriptions: New amoxicillin 500 mg tablet 500 mg PO BID Qty: 20 0RF ibuprofen 800 mg tablet 800 mg PO Q8H PRN (Reason: pain) Qty: 20 0RF No Action prednisone 20 mg tablet 20 mg PO DAILY Qty: 5 0RF ketorolac 10 mg tablet 10 mg PO Q6H PRN (Reason: pain) 5 Days Qty: 20 0RF tamsulosin [Flomax] 0.4 mg capsule 0.4 mg PO BEDTIME Qty: 4 0RF valacyclovir [Valtrex] 1 gram tablet 1,000 mg PO BID Qty: 14 0RF doxycycline monohydrate 100 mg capsule 100 mg PO BID Qty: 14 0RF albuterol sulfate 90 mcg/actuation aerosol powdr breath activated 2 inh inhalation Q4-6H PRN (Reason: shortness of breath or wheezing) Qty: 1 0RF penicillin V potassium 500 mg tablet 500 mg PO TID Qty: 30 0RF
[2022-10-10 23:48] VITALS: BP 143/86; PULSE 69; RESP 16; TEMP 36.3; O2SAT 98
[2022-10-10] MEDS: oxyCODONE HCl Immed Release 5 MG TABLET PO (23:50)
[2022-10-10] MEDS: Ibuprofen 600 MG TABLET PO (23:51)
[2022-10-10] MEDS: Amoxicillin 500 MG CAPSULE PO (23:51)
--- NOTE | 2022-10-10 23:54 | PC.NURSE ---
Medicated per Mar, Reviewed discharge instruction with pt, pt verbalized understanding. no sign distressed.
== END 2022-10-10 23:57 | disposition home or self-care (01) ==
PROVIDERS: Emergency Provider Emergency Medicine
DX: K08.89 Other specified disorders of teeth and supporting structures (principal); K05.10 Chronic gingivitis, plaque induced
CPT/HCPCS: 99283; 99284

== ENCOUNTER 2022-10-26 03:45 | Emergency (ER) | payer SELFPAY ==
[2022-10-26 03:51] VITALS: BP 135/87; PULSE 69; RESP 20; TEMP 36.7; O2SAT 98; BMI 27.3
[2022-10-26 04:18] LABS: COVID-19 Test Negative (Negative); IDNOW Serial# 6674DD1D
[2022-10-26 05:15] LABS: Influenza A PCR NEGATIVE (Negative); Influenza B PCR NEGATIVE (Negative); Resp Syncy Virus RNA Qual PCR NEGATIVE (Negative); SARS COV2 PCR INHOUSE NEGATIVE (Negative)
--- NOTE | 2022-10-26 05:55 | ED.GENADULT ---
HPI - General Adult General Chief complaint: General Medical Stated complaint: Vomiting, ?Covid Time Seen by Provider: 10/26/22 05:43 Source: patient Mode of arrival: ambulatory Limitations: no limitations History of Present Illness HPI narrative: Patient was at work took antibiotic empty stomach for toothache and vomited 3 times staff was concerned because another staff member was positive for COVID patient denies any cough no body abdominal pain feeling much better now Related Data Previous Rx's Medication Instructions Recorded ketorolac 10 mg tablet 10 mg PO Q6H PRN pain 5 days #20 12/18/19 tabs tamsulosin 0.4 mg capsule (Flomax) 0.4 mg PO BEDTIME #4 caps 12/18/19 prednisone 20 mg tablet 20 mg PO DAILY #5 tabs 12/19/19 doxycycline monohydrate 100 mg 100 mg PO BID #14 caps 11/22/20 capsule valacyclovir 1 gram tablet 1,000 mg PO BID #14 tabs 11/22/20 (Valtrex) albuterol sulfate 90 mcg/actuation 2 inh inhalation Q4-6H PRN 01/22/22 breath activated powder inhaler shortness of breath or wheezing #1 ea penicillin V potassium 500 mg 500 mg PO TID #30 tabs 07/05/22 tablet amoxicillin 500 mg tablet 500 mg PO BID #20 tabs 10/10/22 ibuprofen 800 mg tablet 800 mg PO Q8H PRN pain #20 tabs 10/10/22 Allergies Allergy/AdvReac Type Severity Reaction Status Date / Time Iodine and Iodide Containing Allergy Rash Verified 10/10/22 21:41 Produc Review of Systems Review of Systems: Yes all other systems are reviewed and are negative [facility] Past Medical History Medical History No known health problems Social History Social History Advance Directives: No Advance Directives Information Provided: Yes Physical Exam ED Vital Signs: Vital Signs - 24 hr 10/26/22 03:51 Temperature 98.0 F Pulse Rate 69 Respiratory Rate 20 Blood Pressure 135/87 Pulse Oximetry 98 Oxygen Delivery Method Room Air BMI result Body Mass Index 27.3 Appearance: Alert. Oriented X3. No acute distress. Eyes: PERRLA, No Nystagmus ENT: Pharynx normal. Oral Mucosa moist Neck: Normal inspection. Neck supple. CVS: Normal heart rate and rhythm. Pulses normal. Respiratory: No respiratory distress. Equal air entry bilateral, no wheezing/rales/rhonchi Abdomen: Soft and nontender. Bowel sounds are present, no mass palpable, no CVA tenderness Skin: Skin warm and dry. Normal skin color. Normal skin turgor. Extremities: No lower extremity edema. No calf tenderness Neuro: Oriented X 3. Medical Decision Making Lab Data MDM Lab Attestation statement: I reviewed the patient's lab results. Labs: Lab Results 10/26/22 10/26/22 Range/Units 04:01 04:28 COVID-19 ([facility]) Negative (Negative) COVID-19 Clin Com See Note Influenza Type A (PCR) NEGATIVE (Negative) Influenza Type B (PCR) NEGATIVE (Negative) RSV RNA Qual (PCR) NEGATIVE (Negative) SARS-CoV-2 RNA (RT-PCR) NEGATIVE (Negative) Discharge Plan Discharge Clinical Impression: Vomiting Patient Disposition: Home, Self-Care Instructions: Acute Nausea and Vomiting (ED) Additional Instructions: Drink plenty of fluids Follow the PCP if any concerns Your COVID is negative Prescriptions: No Action prednisone 20 mg tablet 20 mg PO DAILY Qty: 5 0RF ketorolac 10 mg tablet 10 mg PO Q6H PRN (Reason: pain) 5 Days Qty: 20 0RF tamsulosin [Flomax] 0.4 mg capsule 0.4 mg PO BEDTIME Qty: 4 0RF valacyclovir [Valtrex] 1 gram tablet 1,000 mg PO BID Qty: 14 0RF doxycycline monohydrate 100 mg capsule 100 mg PO BID Qty: 14 0RF albuterol sulfate 90 mcg/actuation aerosol powdr breath activated 2 inh inhalation Q4-6H PRN (Reason: shortness of breath or wheezing) Qty: 1 0RF penicillin V potassium 500 mg tablet 500 mg PO TID Qty: 30 0RF amoxicillin 500 mg tablet 500 mg PO BID Qty: 20 0RF ibuprofen 800 mg tablet 800 mg PO Q8H PRN (Reason: pain) Qty: 20 0RF Stand Alone Forms: Work/School Release
== END 2022-10-26 06:03 | disposition home or self-care (01) ==
PROVIDERS: Emergency Provider Internal Medicine
DX: R11.10 Vomiting, unspecified (principal); Z20.822 Contact with and (suspected) exposure to COVID-19; Z20.828 Contact with and (suspected) exposure to other viral communicable diseases
CPT/HCPCS: 0241U; 87635; 99283; 99284

== ENCOUNTER 2023-03-04 08:53 | Emergency (ER) | payer OTHER, SELFPAY ==
[2023-03-04 08:56] VITALS: BP 145/93; RESP 16; TEMP 36.8; O2SAT 99; BMI 21.6
--- NOTE | 2023-03-04 10:38 | ED_ITS ---
HPI - Dental/Oral General Chief complaint: Dental/Oral Stated complaint: Mouth pain Time Seen by Provider: 03/04/23 10:34 Source: patient, RN notes reviewed and old records reviewed Mode of arrival: ambulatory History of Present Illness HPI Narrative: 27-year-old male with a past medical history of left lower molar removal 1 week ago presenting to the ED complaining of continued pain to area since yesterday. Admits to taking Tylenol at home without relief. Denies fever/chills, difficulty or inability to swallow, drainage from area, ear pain. Denies calling his dentist MD Complaint: tooth pain Related Data Previous Rx's Medication Instructions Recorded ketorolac 10 mg tablet 10 mg PO Q6H PRN pain 5 days #20 12/18/19 tabs tamsulosin 0.4 mg capsule (Flomax) 0.4 mg PO BEDTIME #4 caps 12/18/19 prednisone 20 mg tablet 20 mg PO DAILY #5 tabs 12/19/19 doxycycline monohydrate 100 mg 100 mg PO BID #14 caps 11/22/20 capsule valacyclovir 1 gram tablet 1,000 mg PO BID #14 tabs 11/22/20 (Valtrex) albuterol sulfate 90 mcg/actuation 2 inh inhalation Q4-6H PRN 01/22/22 breath activated powder inhaler shortness of breath or wheezing #1 ea penicillin V potassium 500 mg 500 mg PO TID #30 tabs 07/05/22 tablet amoxicillin 500 mg tablet 500 mg PO BID #20 tabs 10/10/22 ibuprofen 800 mg tablet 800 mg PO Q8H PRN pain #20 tabs 10/10/22 ketorolac 10 mg tablet 10 mg PO TID PRN pain 5 days #15 03/04/23 tabs Allergies Allergy/AdvReac Type Severity Reaction Status Date / Time Iodine and Iodide Containing Allergy Rash Verified 10/10/22 21:41 Produc Review of Systems Review of Systems: Constitutional: No Fever, No Chills ENT/Mouth: No Ear Pain, No Nasal Congestion, +dental pain, No sore throat, No Rhinorrhea, No Swallowing Difficulty Cardiovascular: No Chest Pain, No SOB Respiratory: No Cough, No Sputum Gastrointestinal: No Nausea, No Vomiting, No Abdominal pain Musculoskeletal: No joint pain, No Myalgias, No Joint Swelling Skin: No Skin Lesions, No rash Neuro: No Weakness Yes all other systems are reviewed and are negative Constitutional: Constitutional: Reports as per [facility] Past Medical History Attestation statement: The following information was validated with the patient. Source: old records reviewed Onset Date is defined in the Problem List Problems that require an onset date and time if occurred within 24 hrs of arrival to the ED Aortic Dissection and Rupture; Neurologic impairment; Cardiopulmonary Arrest; Endotracheal Intubation; Insertion or Replacement of Mechanical Circulatory Assist Device Medical History No known health problems Social History Social History Advance Directives: No Advance Directives Information Provided: No Physical Exam Vital Signs: Vital Signs: Last Vital Signs Temp 98.3 F 03/04/23 08:56 Resp 16 03/04/23 08:56 BP 145/93 H 03/04/23 08:56 Pulse Ox 99 03/04/23 08:56 BMI result Body Mass Index 21.6 Const: General: cooperative, healthy appearing and no acute distress Orientation/consciousness: patient oriented x3 Limitations: no limitations HEENT: Other: + left lower 1st molar removed. No ging ival swelling/erythema, fluctuance or induration. Nontender. Head: Yes normal to inspection and Yes atraumatic Ears: hearing grossly normal bilaterally General nose exam: Normal external nose present Face and sinus: Yes normal facial exam Teeth and gingiva: poor dentition Throat: Yes posterior oropharynx normal, Yes uvula midline, No peritonsillar mass, No uvula laterally displaced and No uvular edema Eyes: General: appearance normal, both eyes and all related structures EOM: EOMs intact bilaterally Neck: Neck: Yes normal visual inspection and Yes no meningeal signs Resp: Effort & Inspection: normal respiratory effort, no respiratory distress and no stridor Cardio: Rate: regular rate Skin: Rashes: no rashes Wounds: no wounds Neuro: General: patient oriented x3, tone normal and no meningeal signs Cranial nerves: Yes CN's II-XII intact bilaterally Gait exam (Neuro): Normal gait present Extrem: General: Yes normal to inspection Medications Administered Discontinued Medications Generic Name Dose Route Start Last Admin Trade Name Freq PRN Reason Stop Dose Admin Ketorolac Tromethamine 30 mg 03/04/23 10:42 03/04/23 10:56 Ketorolac Tromethamine 30 Mg/Ml Vial IM 03/04/23 10:43 30 mg ONCE ONE Administration Medical Decision Making Medical Decision Making MDM Narrative: 27-year-old male with a past medical history of left lower molar removal 1 week ago presenting to the ED complaining of continued pain to area since yesterday. On exam vital signs stable, NAD, nontoxic appearing physical exam as noted above. Poor dentition with appropriately healing tooth extraction site without evidence of abscess or cellulitis. Plan: IM Toradol, recommended he call his dentist for close follow-up. No antibiotics indicated at this time Please refer to course for remaining clinical decision making, interpretation of labs/imaging results, and discussions with consultants and/or family members. Results discussed with patient including worrisome signs and symptoms and strict return precautions, and when to return to the emergency department. They verbalized understanding and feel safe for discharge at this time. Differential Diagnosis Differential Diagnoses: The differential diagnosis associated with the presentation includes As above External Record Review External record reviewed: Inpatient record, Office record, Outpatient record, Prior outpatient labs, Prior outpatient radiology, Primary care record and Outside ED record Tests considered The following testing was considered but not selected: As above Prescription Management I considered prescription management with: Pain Medication and Antibiotic Discharge Plan Discharge Clinical Impression: Toothache Patient Disposition: Home, Self-Care Instructions: Toothache (ED) Additional Instructions: Please call your dentist for close follow-up Toradol as an anti-inflammatory/pain medicine please take with food . Do not take both Toradol, ibuprofen/naproxen/Aleve or Motrin as they are all similar medications In addition take Tylenol If area begins look infected, is red there is drainage of fever or drink inability to swallow return to the ED Prescriptions: New ketorolac 10 mg tablet 10 mg PO TID PRN (Reason: pain) 5 Days Qty: 15 0RF No Action prednisone 20 mg tablet 20 mg PO DAILY Qty: 5 0RF ketorolac 10 mg tablet 10 mg PO Q6H PRN (Reason: pain) 5 Days Qty: 20 0RF tamsulosin [Flomax] 0.4 mg capsule 0.4 mg PO BEDTIME Qty: 4 0RF valacyclovir [Valtrex] 1 gram tablet 1,000 mg PO BID Qty: 14 0RF doxycycline monohydrate 100 mg capsule 100 mg PO BID Qty: 14 0RF albuterol sulfate 90 mcg/actuation aerosol powdr breath activated 2 inh inhalation Q4-6H PRN (Reason: shortness of breath or wheezing) Qty: 1 0RF penicillin V potassium 500 mg tablet 500 mg PO TID Qty: 30 0RF amoxicillin 500 mg tablet 500 mg PO BID Qty: 20 0RF ibuprofen 800 mg tablet 800 mg PO Q8H PRN (Reason: pain) Qty: 20 0RF Referrals: Physician,Unknown J [Primary Care Provider] - Stand Alone Forms: Work/School Release Interventions: ED Discharge Assessment Last Done: 03/04/23 11:03 Discharge Date/Time: 03/04/23 11:05
[2023-03-04] MEDS: Ketorolac Tromethamine 30 MG/ML VIAL IM (10:56)
== END 2023-03-04 11:05 | disposition home or self-care (01) ==
PROVIDERS: Emergency Provider Emergency Medicine
DX: K08.89 Other specified disorders of teeth and supporting structures (principal)
CPT/HCPCS: 96372; 99283; 99284; J1885

== ENCOUNTER 2023-06-13 22:42 | Emergency (ER) | payer OTHER, SELFPAY ==
[2023-06-13 22:54] VITALS: BP 160/100; PULSE 60; RESP 16; TEMP 36.4; O2SAT 100; BMI 25.0
--- NOTE | 2023-06-14 00:52 | ED.GENADULT ---
HPI - General Adult General Chief complaint: Dental/Oral Stated complaint: Dental pain Time Seen by Provider: 06/14/23 00:51 Source: patient Mode of arrival: ambulatory Limitations: no limitations History of Present Illness HPI narrative: Patient is a 27 year old assigned male at with a history of kidney stones presenting to the emergency department today with left upper dental pain. Patient states that he had a left lower tooth removed last month and starting an hour ago, he began to have dental pain above and next to the removed tooth. Patient denies any dizziness, lightheadedness, abdominal pain, nausea, vomiting, fever, chills, blurry vision, double vision, loss of vision, chest pain, difficulty breathing, shortness of breath, back pain, night sweats, pain with urination, increased urinary frequency, increased urinary urgency, blood in his urine or stool, syncope or a near syncopal episode, recent trauma or falls, bowel incontinence, bladder incontinence, bowel retention, bladder retention, or any other complaints at this time. Onset (ago): hour(s) (1) Location: mouth and left Severity: mild Severity scale (1-10): 3 Quality: aching and dull Pain Consistency: constant Relieving factors: none Exacerbating factors: none Associated symptoms: denies other symptoms Treatments prior to arrival: none Related Data Previous Rx's ?Medication ?Instructions ?Recorded tamsulosin 0.4 mg capsule (Flomax) 0.4 mg PO BEDTIME #4 caps 12/18/19 prednisone 20 mg tablet 20 mg PO DAILY #5 tabs 12/19/19 doxycycline monohydrate 100 mg 100 mg PO BID #14 caps 11/22/20 capsule valacyclovir 1 gram tablet 1,000 mg PO BID #14 tabs 11/22/20 (Valtrex) albuterol sulfate 90 mcg/actuation 2 inh inhalation Q4-6H PRN 01/22/22 breath activated powder inhaler shortness of breath or wheezing #1 ea penicillin V potassium 500 mg 500 mg PO TID #30 tabs 07/05/22 tablet amoxicillin 500 mg tablet 500 mg PO BID #20 tabs 10/10/22 ibuprofen 800 mg tablet 800 mg PO Q8H PRN pain #20 tabs 10/10/22 ketorolac 10 mg tablet 10 mg PO TID PRN pain 5 days #15 03/04/23 tabs ketorolac 10 mg tablet 10 mg PO TID PRN pain 5 days #15 03/11/23 tabs chlorhexidine gluconate 0.12 % 15 ml buccal BID #118 mL 06/14/23 mouthwash (Peridex) naproxen 500 mg tablet 500 mg PO BID 7 days #14 tabs 06/14/23 penicillin V potassium 500 mg 500 mg PO BID 10 days #20 tabs 06/14/23 tablet Allergies Allergy/AdvReac Type Severity Reaction Status Date / Time Iodine and Iodide Containing Allergy Rash Verified 06/13/23 22:56 Produc Review of Systems Constitutional: Constitutional: Reports no additional constitutional complaints, Denies chills, Denies fever(s) and Denies night sweats Eyes: Eyes: Reports no additional eye complaints, Denies blurry vision, Denies change in vision, Denies diplopia, Denies eye discharge, Denies loss of vision and Denies eye pain ENT: Denies dizziness Comments: left upper and lower dental pain Cardiovascular: Cardiovascular: Reports no additional cardiovascular complaints, Denies chest pain, Denies lightheadedness, Denies Loss of Consciousness and Denies dyspnea Respiratory: Respiratory: Reports no additional respiratory complaints and Denies dyspnea Gastrointestinal: Gastrointestinal: Reports no additional gastrointestinal complaints, Denies abdominal pain, Denies melena, Denies hematochezia, Denies change in bowel habits and Denies change in stool character Genitourinary: Genitourinary: Reports no additional male genitourinary complaints, Denies hematuria, Denies oliguria, Denies difficulty urinating, Denies dysuria, Denies urinary frequency, Denies urinary hesitancy, Denies urinary incontinence and Denies urinary urgency Musculoskeletal: Musculoskeletal: Reports no additional musculoskeletal complaints, Denies numbness and Denies tingling Neurologic: Denies dizziness, Denies loss of vision, Denies numbness and Denies tingling Psychiatric: Psychiatric: Reports no additional psychiatric complaints Endocrine: Endocrine: Reports no additional endocrine complaints Hematologic/Lymphatic: Hematologic/Lymphatic: Reports no additional hematologic/lymphatic complaints Allergic/Immunologic: Allergic/Immunologic: Reports no additional allergic/immunologic complaints PMFSH Past Medical History Attestation statement: The following information was validated with the patient. Source: old records reviewed and nursing notes reviewed Medical History No known health problems Social History Social History Advance Directives: No Advance Directives Information Provided: Yes Do you have a plan to hurt others: No Plan Physical Exam ED Vital Signs: Vital Signs - 24 hr 06/13/23 22:54 Temperature 97.5 F Pulse Rate 60 Respiratory Rate 16 Blood Pressure 160/100 H Pulse Oximetry 100 Oxygen Delivery Method Room Air BMI result Body Mass Index 25.0 Const General: cooperative, no acute distress, alert and awake Nutritional Appearance: well nourished Orientation/consciousness: patient oriented x3 Limitations: no limitations HENMT Head: Yes normal to inspection and Yes atraumatic Ears: hearing grossly normal bilaterally and external ears normal General nose exam: Normal external nose present, no nasal discharge noted and no epistaxis Face and sinus: Yes normal facial exam, No abrasion and No laceration Mouth: Normal oral and palatal mucosa present, no drooling and no muffled voice Teeth and gingiva: poor dentition Teeth image: 1. minimal swelling and erythema - no fluctuance Eyes General: appearance normal, both eyes and all related structures Periorbital: periorbital findings normal Eyelids: Yes eyelids normal Conjunctivae: conjunctivae normal Pupils: Equal, round and reactive pupils present EOM: EOMs intact bilaterally Neck Neck: Yes normal visual inspection, Yes full ROM and Yes no lymphadenopathy Chest Chest palpation & inspection: normal inspection of the chest Resp Effort & Inspection: normal respiratory effort and able to speak in complete sentences GI Inspection: Yes normal to inspection Neuro General: patient oriented x3 and moves all extremities Cranial nerves: Yes Equal, round and reactive pupils present Cognition (Neuro): normal cognition Motor exam (neuro): 5/5 motor strength present throughout Sensory Exam: Normal double simultaneous stimulation for sensation Coordination: [id number] test normal Extrem General: Yes normal to inspection, Yes full ROM and Yes capillary refill normal Psych Appearance: grossly normal Mental Status: mental status grossly normal Affect: normal affect Attitude: cooperative Thought process: Normal thought process present Thought content: Normal thought content present Insight: Good insight present (Psych) Medical Decision Making Medical Decision Making MDM Narrative: Patient is a 27 year old assigned male at with a history of kidney stones presenting to the emergency department today with left upper and left lower dental pain. Patient's physical exam was as noted in the physical exam portion of this note. Patient's clinical presentation is most consistent with poor dental caries and developing dental abscess. I explained my physical exam findings to the patient. I answered all questions asked by the patient. I stressed the importance of the patient taking his medication as prescribed. I stressed the importance of the patient following up with his primary care provider and a dentist. I stressed the importance of the patient returning to the emergency department immediately if his symptoms were to worsen or if he were to develop any dizziness, shortness of breath, difficulty breathing, chest pain, blurry vision, loss of vision, nausea, vomiting, abdominal pain, fever, chills, back pain, or any other complaints. Patient verbalized agreement and understanding with this treatment plan and discharge. Differential Diagnosis Differential Diagnoses: The differential diagnosis associated with the presentation includes Dental abscess Dental pain Poor dentition Dental caries Admission/Observation Consideration of admission/observation: Escalation of care including admission/observation considered Patient would have been admitted to the hospital had his clinical presentation warranted hospital admission. Prescription Management I considered prescription management with: Pain Medication (patient prescribed pain medication) and Antibiotic (patient prescribed an antibiotic for possible developing dental abscess) Discharge Plan Discharge Clinical Impression: Pain, dental, Abscess, dental Patient Disposition: Home, Self-Care Instructions: Dental Abscess (ED), Toothache (ED) Additional Instructions: Follow up with your primary care provider. Return to the emergency department immediately if your symptoms worsen or if you develop any dizziness, shortness of breath, difficulty breathing, chest pain, blurry vision, loss of vision, nausea, vomiting, abdominal pain, fever, chills, back pain, or any other complaints. Call or visit any of the clinics below to establish with a dentist: [facility] [address] [place] [address] [facility] [address] [facility], [address] [address] [place] [id number] [facility] [address] [place] [id number] [facility] [address] [place] [address] [place] [address] [place] [address] Prescriptions: New penicillin V potassium 500 mg tablet 500 mg PO BID 10 Days Qty: 20 0RF naproxen 500 mg tablet 500 mg PO BID 7 Days Qty: 14 0RF chlorhexidine gluconate [Peridex] 0.12 % mouthwash 15 ml buccal BID Qty: 118 0RF No Action prednisone 20 mg tablet 20 mg PO DAILY Qty: 5 0RF tamsulosin [Flomax] 0.4 mg capsule 0.4 mg PO BEDTIME Qty: 4 0RF valacyclovir [Valtrex] 1 gram tablet 1,000 mg PO BID Qty: 14 0RF doxycycline monohydrate 100 mg capsule 100 mg PO BID Qty: 14 0RF albuterol sulfate 90 mcg/actuation aerosol powdr breath activated 2 inh inhalation Q4-6H PRN (Reason: shortness of breath or wheezing) Qty: 1 0RF penicillin V potassium 500 mg tablet 500 mg PO TID Qty: 30 0RF amoxicillin 500 mg tablet 500 mg PO BID Qty: 20 0RF ibuprofen 800 mg tablet 800 mg PO Q8H PRN (Reason: pain) Qty: 20 0RF ketorolac 10 mg tablet 10 mg PO TID PRN (Reason: pain) 5 Days Qty: 15 0RF ketorolac 10 mg tablet 10 mg PO TID PRN (Reason: pain) 5 Days Qty: 15 0RF Referrals: [facility] Family Medicine [Provider Group] (Call to establish and follow up with a primary care provider. If you already have a primary care provider, please follow up with them.) [facility] Primary [facility] [Provider Group] [facility] [Provider Group] Stand Alone Forms: Work/School Release Print Language: [place] Zeal[place]
[2023-06-14 01:46] VITALS: BP 128/85; PULSE 54; RESP 16; TEMP 36.6; O2SAT 98
[2023-06-14] MEDS: oxyCODONE HCl Immed Release 5 MG TABLET PO (01:56)
[2023-06-14 02:01] VITALS: BP 125/85; PULSE 54; RESP 16; TEMP 36.6; O2SAT 98
== END 2023-06-14 02:02 | disposition home or self-care (01) ==
PROVIDERS: Emergency Provider Emergency Medicine
DX: K04.7 Periapical abscess without sinus (principal); K08.89 Other specified disorders of teeth and supporting structures
CPT/HCPCS: 99283

== ENCOUNTER 2023-07-03 18:21 | Emergency (ER) | payer OTHER, SELFPAY ==
[2023-07-03 18:49] VITALS: BP 145/97; PULSE 64; RESP 16; TEMP 36.8; O2SAT 100; BMI 24.2
== END 2023-07-03 22:41 | disposition left against medical advice (07) ==
PROVIDERS: Emergency Provider Emergency Medicine
DX: Z53.21 Procedure and treatment not carried out due to patient leaving prior to being seen by health care provider (principal); R68.84 Jaw pain; K13.79 Other lesions of oral mucosa
CPT/HCPCS: 99281

== ENCOUNTER 2023-07-06 15:57 | Emergency (ER) | payer OTHER, SELFPAY ==
[2023-07-06 16:15] VITALS: BP 120/68; PULSE 69; RESP 14; TEMP 36.9; O2SAT 97; BMI 22.5
--- NOTE | 2023-07-06 16:15 | ED_ITS ---
HPI - General Adult General Chief complaint: Dental/Oral Stated complaint: mouth pain Time Seen by Provider: 07/06/23 16:20 Source: patient, RN notes reviewed and old records reviewed Mode of arrival: ambulatory Limitations: no limitations History of Present Illness HPI narrative: 27-year-old male presents for evaluation of mouth pain He was seen here on June 13 for a dental abscess. He was discharged home with penicillin, naproxen and chlorhexidine mouthwash He reports that his pain has not improved despite taking his antibiotics. Patient states that he has 1 dose left of the penicillin he was prescribed 3 weeks ago He called his dentist and has an appointment in 2 weeks Related Data Previous Rx's ?Medication ?Instructions ?Recorded tamsulosin 0.4 mg capsule (Flomax) 0.4 mg PO BEDTIME #4 caps 12/18/19 prednisone 20 mg tablet 20 mg PO DAILY #5 tabs 12/19/19 doxycycline monohydrate 100 mg 100 mg PO BID #14 caps 11/22/20 capsule valacyclovir 1 gram tablet 1,000 mg PO BID #14 tabs 11/22/20 (Valtrex) albuterol sulfate 90 mcg/actuation 2 inh inhalation Q4-6H PRN 01/22/22 breath activated powder inhaler shortness of breath or wheezing #1 ea penicillin V potassium 500 mg 500 mg PO TID #30 tabs 07/05/22 tablet amoxicillin 500 mg tablet 500 mg PO BID #20 tabs 10/10/22 ibuprofen 800 mg tablet 800 mg PO Q8H PRN pain #20 tabs 10/10/22 ketorolac 10 mg tablet 10 mg PO TID PRN pain 5 days #15 03/04/23 tabs ketorolac 10 mg tablet 10 mg PO TID PRN pain 5 days #15 03/11/23 tabs chlorhexidine gluconate 0.12 % 15 ml buccal BID #118 mL 06/14/23 mouthwash (Peridex) naproxen 500 mg tablet 500 mg PO BID 7 days #14 tabs 06/14/23 penicillin V potassium 500 mg 500 mg PO BID 10 days #20 tabs 06/14/23 tablet naproxen 500 mg tablet 500 mg PO BID PRN pain #20 tabs 07/06/23 tramadol 50 mg tablet 50 mg PO Q6H PRN pain #16 tabs 05/22/24 Allergies Allergy/AdvReac Type Severity Reaction Status Date / Time Iodine and Iodide Containing Allergy Rash Verified 07/06/23 16:18 Produc Review of Systems Constitutional: Constitutional: Denies body ache(s), Denies chills and Denies fever(s) ENT: Denies otalgia and Reports mouth pain Cardiovascular: Cardiovascular: Denies chest pain and Denies dyspnea Respiratory: Respiratory: Denies cough and Denies dyspnea Gastrointestinal: Gastrointestinal: Denies abdominal pain, Denies nausea and Denies vomiting PMFSH Past Medical History Medical History No known health problems Social History Social History Advance Directives: No Advance Directives Information Provided: No Do you have a plan to hurt others: No Plan Physical Exam ED Vital Signs: Vital Signs - 24 hr 07/06/23 16:15 Temperature 98.5 F Pulse Rate 69 Respiratory Rate 14 Blood Pressure 120/68 Pulse Oximetry 97 Oxygen Delivery Method Room Air BMI result Body Mass Index 22.5 Const General: healthy appearing, comfortable, no acute distress, alert and awake Nutritional Appearance: well nourished Orientation/consciousness: patient oriented x3 HENMT Other: There is no significant gingival edema or I have an abscess. The patient has a left upper molar with dental root exposed. There is a partial dental fracture to the left lower molar. There is a previous left lower molar dental excision removal. Again, no significant erythema or gingival edema Head: Yes normocephalic and Yes atraumatic Throat: Yes posterior oropharynx normal Eyes Eyelids: Yes eyelids normal Conjunctivae: conjunctivae normal Sclerae: sclerae normal Corneas: corneas normal Pupils: Equal, round and reactive pupils present EOM: EOMs intact bilaterally Neck Neck: Yes full ROM and No anterior neck swelling Resp Effort & Inspection: normal respiratory effort, able to speak in complete sentences and not labored GI Inspection: No distended Palpation (GI): Soft to palpation, not firm, nontender, no guarding and not rigid Skin General skin exam: elasticity normal Neuro General: patient oriented x3 Cranial nerves: Yes Equal, round and reactive pupils present and Yes Bilaterally intact EOM present Cognition (Neuro): normal cognition Extrem Other: Moving all extremities well without any obvious deformities Medical Decision Making Medical Decision Making MDM Narrative: 27-year-old male presents for evaluation of facial pain. He has no active dental infection, no facial edema, no anterior neck edema. Will treat the patient's pain and have him follow-up with his dentist Differential Diagnosis Differential Diagnoses: The differential diagnosis associated with the presentation includes Atypical facial pain Dental abscess Dental caries Facial pain Discharge Plan Discharge Clinical Impression: Atypical facial pain Patient Disposition: Home, Self-Care Instructions: Atypical Facial Pain (ED) Additional Instructions: There is no evidence of continued infection Continue to use Naproxen as needed for pain. You may also use over the counter Orajel. You may use tramadol for severe breakthrough pain This may make you sleepy, did not drink alcohol or drive after taking it I recommend trying to get in touch with an emergency dentist if you can not wait 2 weeks to see your dentist Prescriptions: New naproxen 500 mg tablet 500 mg PO BID PRN (Reason: pain) Qty: 20 0RF tramadol 50 mg tablet 50 mg PO Q6H PRN (Reason: pain) Qty: 16 0RF No Action prednisone 20 mg tablet 20 mg PO DAILY Qty: 5 0RF tamsulosin [Flomax] 0.4 mg capsule 0.4 mg PO BEDTIME Qty: 4 0RF valacyclovir [Valtrex] 1 gram tablet 1,000 mg PO BID Qty: 14 0RF doxycycline monohydrate 100 mg capsule 100 mg PO BID Qty: 14 0RF albuterol sulfate 90 mcg/actuation aerosol powdr breath activated 2 inh inhalation Q4-6H PRN (Reason: shortness of breath or wheezing) Qty: 1 0RF penicillin V potassium 500 mg tablet 500 mg PO TID Qty: 30 0RF penicillin V potassium 500 mg tablet 500 mg PO BID 10 Days Qty: 20 0RF naproxen 500 mg tablet 500 mg PO BID 7 Days Qty: 14 0RF chlorhexidine gluconate [Peridex] 0.12 % mouthwash 15 ml buccal BID Qty: 118 0RF amoxicillin 500 mg tablet 500 mg PO BID Qty: 20 0RF ibuprofen 800 mg tablet 800 mg PO Q8H PRN (Reason: pain) Qty: 20 0RF ketorolac 10 mg tablet 10 mg PO TID PRN (Reason: pain) 5 Days Qty: 15 0RF ketorolac 10 mg tablet 10 mg PO TID PRN (Reason: pain) 5 Days Qty: 15 0RF Discharge Date/Time: 07/06/23 16:50 Print Language: Guatemalan
== END 2023-07-06 16:50 | disposition home or self-care (01) ==
LOC: HO.ED 16:33
PROVIDERS: Emergency Provider Emergency Medicine
DX: K08.89 Other specified disorders of teeth and supporting structures (principal)
CPT/HCPCS: 99281; 99283

== ENCOUNTER 2023-08-02 01:13 | Emergency (ER) | payer SELFPAY ==
[2023-08-02 01:30] VITALS: BP 137/94; PULSE 66; RESP 18; TEMP 36.5; O2SAT 99; BMI 24.7
--- NOTE | 2023-08-02 02:29 | ED_ITS ---
HPI - Dental/Oral General Chief complaint: Dental/Oral Stated complaint: mouth pain Time Seen by Provider: 08/02/23 02:28 Source: patient Mode of arrival: ambulatory Limitations: no limitations History of Present Illness ED Provider: susan MARRERO Narrative: Patient has dental caries complaining of pain in left lower premolar for last 24 hours no fever no chills no gum swelling Related Data Previous Rx's ?Medication ?Instructions ?Recorded tamsulosin 0.4 mg capsule (Flomax) 0.4 mg PO BEDTIME #4 caps 12/18/19 prednisone 20 mg tablet 20 mg PO DAILY #5 tabs 12/19/19 doxycycline monohydrate 100 mg 100 mg PO BID #14 caps 11/22/20 capsule valacyclovir 1 gram tablet 1,000 mg PO BID #14 tabs 11/22/20 (Valtrex) albuterol sulfate 90 mcg/actuation 2 inh inhalation Q4-6H PRN 01/22/22 breath activated powder inhaler shortness of breath or wheezing #1 ea penicillin V potassium 500 mg 500 mg PO TID #30 tabs 07/05/22 tablet amoxicillin 500 mg tablet 500 mg PO BID #20 tabs 10/10/22 ibuprofen 800 mg tablet 800 mg PO Q8H PRN pain #20 tabs 10/10/22 ketorolac 10 mg tablet 10 mg PO TID PRN pain 5 days #15 03/04/23 tabs ketorolac 10 mg tablet 10 mg PO TID PRN pain 5 days #15 03/11/23 tabs chlorhexidine gluconate 0.12 % 15 ml buccal BID #118 mL 06/14/23 mouthwash (Peridex) naproxen 500 mg tablet 500 mg PO BID 7 days #14 tabs 06/14/23 penicillin V potassium 500 mg 500 mg PO BID 10 days #20 tabs 06/14/23 tablet naproxen 500 mg tablet 500 mg PO BID PRN pain #20 tabs 07/06/23 tramadol 50 mg tablet 50 mg PO Q6H PRN pain #16 tabs 07/06/23 amoxicillin 875 mg-potassium 1 tab PO BID #20 tabs 08/02/23 clavulanate 125 mg tablet ibuprofen 600 mg tablet 600 mg PO Q6H PRN fever or pain 08/02/23 #30 tabs Allergies Allergy/AdvReac Type Severity Reaction Status Date / Time Iodine and Iodide Containing Allergy Rash Verified 08/02/23 01:30 Produc Review of Systems 2 Review of Systems: Yes all other systems are reviewed and are negative [facility] Past Medical History Medical History No known health problems Social History Social History Advance Directives: No Advance Directives Information Provided: Yes Do you have a plan to hurt others: No Plan Physical Exam 2 Vital Signs: Vital Signs: Last Vital Signs Temp 97.7 F 08/02/23 01:30 Pulse 66 08/02/23 01:30 Resp 18 08/02/23 01:30 BP 137/94 H 08/02/23 01:30 Pulse Ox 99 08/02/23 01:30 O2 Del Method Room Air 08/02/23 01:30 BMI result Body Mass Index 24.7 HEENT: Teeth image: 1. Caries tooth no significant gum swelling Medical Decision Making Medical Decision Making MDM Narrative: Patient with minor care is to will give antibiotics ibuprofen advised to follow with dentist Discharge Plan Discharge Clinical Impression: Dental caries Patient Disposition: Home, Self-Care Instructions: Toothache (ED) Additional Instructions: Take antibiotics and pain medicine as prescribed Follow up with dentist Prescriptions: New ibuprofen 600 mg tablet 600 mg PO Q6H PRN (Reason: fever or pain) Qty: 30 0RF amoxicillin-pot clavulanate 875-125 mg tablet 1 tab PO BID Qty: 20 0RF No Action prednisone 20 mg tablet 20 mg PO DAILY Qty: 5 0RF tamsulosin [Flomax] 0.4 mg capsule 0.4 mg PO BEDTIME Qty: 4 0RF valacyclovir [Valtrex] 1 gram tablet 1,000 mg PO BID Qty: 14 0RF doxycycline monohydrate 100 mg capsule 100 mg PO BID Qty: 14 0RF albuterol sulfate 90 mcg/actuation aerosol powdr breath activated 2 inh inhalation Q4-6H PRN (Reason: shortness of breath or wheezing) Qty: 1 0RF penicillin V potassium 500 mg tablet 500 mg PO TID Qty: 30 0RF penicillin V potassium 500 mg tablet 500 mg PO BID 10 Days Qty: 20 0RF naproxen 500 mg tablet 500 mg PO BID 7 Days Qty: 14 0RF chlorhexidine gluconate [Peridex] 0.12 % mouthwash 15 ml buccal BID Qty: 118 0RF naproxen 500 mg tablet 500 mg PO BID PRN (Reason: pain) Qty: 20 0RF tramadol 50 mg tablet 50 mg PO Q6H PRN (Reason: pain) Qty: 16 0RF amoxicillin 500 mg tablet 500 mg PO BID Qty: 20 0RF ibuprofen 800 mg tablet 800 mg PO Q8H PRN (Reason: pain) Qty: 20 0RF ketorolac 10 mg tablet 10 mg PO TID PRN (Reason: pain) 5 Days Qty: 15 0RF ketorolac 10 mg tablet 10 mg PO TID PRN (Reason: pain) 5 Days Qty: 15 0RF Print Language: Bolivian
[2023-08-02] MEDS: Ibuprofen 600 MG TABLET PO (03:18)
[2023-08-02] MEDS: Amoxicillin/Potassium Clav 875 MG TABLET PO (03:18)
[2023-08-02 03:21] VITALS: BP 124/74; PULSE 54; RESP 16; TEMP 36.7; O2SAT 97; O2SAT 98
== END 2023-08-02 03:22 | disposition home or self-care (01) ==
PROVIDERS: Emergency Provider Internal Medicine
DX: K02.9 Dental caries, unspecified (principal); K08.89 Other specified disorders of teeth and supporting structures
CPT/HCPCS: 99283; 99284

== ENCOUNTER 2023-08-10 02:02 | Emergency (ER) | payer SELFPAY ==
[2023-08-10 02:09] VITALS: BP 127/84; PULSE 81; RESP 16; TEMP 36.3; O2SAT 98; BMI 24.8
[2023-08-10 02:40] VITALS: BP 109/69; PULSE 73; RESP 17; TEMP 36.6; O2SAT 98
--- NOTE | 2023-08-10 03:44 | ED_ITS ---
HPI - Dental/Oral General Chief complaint: Dental/Oral Stated complaint: mouth pain Time Seen by Provider: 08/10/23 03:06 Source: patient Mode of arrival: ambulatory Limitations: no limitations History of Present Illness ED Provider: DR. Delatorre HPI Narrative: 27-year-old male came in for evaluation of dental pain, patient was seen and evaluated in the ED on 08/02/2023 and started on a course of amoxicillin, patient has dental caries complaining of pain in the left lower premolar tooth. Related Data Previous Rx's ?Medication ?Instructions ?Recorded tamsulosin 0.4 mg capsule (Flomax) 0.4 mg PO BEDTIME #4 caps 12/18/19 prednisone 20 mg tablet 20 mg PO DAILY #5 tabs 12/19/19 doxycycline monohydrate 100 mg 100 mg PO BID #14 caps 11/22/20 capsule valacyclovir 1 gram tablet 1,000 mg PO BID #14 tabs 11/22/20 (Valtrex) albuterol sulfate 90 mcg/actuation 2 inh inhalation Q4-6H PRN 01/22/22 breath activated powder inhaler shortness of breath or wheezing #1 ea penicillin V potassium 500 mg 500 mg PO TID #30 tabs 07/05/22 tablet amoxicillin 500 mg tablet 500 mg PO BID #20 tabs 10/10/22 ibuprofen 800 mg tablet 800 mg PO Q8H PRN pain #20 tabs 10/10/22 ketorolac 10 mg tablet 10 mg PO TID PRN pain 5 days #15 03/04/23 tabs ketorolac 10 mg tablet 10 mg PO TID PRN pain 5 days #15 03/11/23 tabs chlorhexidine gluconate 0.12 % 15 ml buccal BID #118 mL 06/14/23 mouthwash (Peridex) naproxen 500 mg tablet 500 mg PO BID 7 days #14 tabs 06/14/23 penicillin V potassium 500 mg 500 mg PO BID 10 days #20 tabs 06/14/23 tablet naproxen 500 mg tablet 500 mg PO BID PRN pain #20 tabs 07/06/23 tramadol 50 mg tablet 50 mg PO Q6H PRN pain #16 tabs 07/06/23 amoxicillin 875 mg-potassium 1 tab PO BID #20 tabs 08/02/23 clavulanate 125 mg tablet ibuprofen 600 mg tablet 600 mg PO Q6H PRN fever or pain 08/02/23 #30 tabs amoxicillin 500 mg tablet 500 mg PO BID #14 tabs 08/10/23 ibuprofen 600 mg tablet 600 mg PO Q8H PRN pain #20 tabs 08/10/23 Allergies Allergy/AdvReac Type Severity Reaction Status Date / Time Iodine and Iodide Containing Allergy Rash Verified 08/10/23 02:11 Produc Review of Systems 2 Review of Systems: All other systems are reviewed and are negative Constitutional: Reports as per HPI and Reports no additional constitutional complaints Eyes: Reports as per HPI and Reports no additional eye complaints Reports system reviewed and no additional complaints, except as documented Cardiovascular: Reports as per HPI and Reports no additional cardiovascular complaints Respiratory: Reports as per HPI and Reports no additional respiratory complaints Gastrointestinal: Reports as per HPI and Reports no additional gastrointestinal complaints Genitourinary: Reports no additional female genitourinary complaints Musculoskeletal: Reports no additional musculoskeletal complaints Skin/Breast: Reports system reviewed and no additional complaints, except as docu Psychiatric: Reports no additional psychiatric complaints Endocrine: Reports no additional endocrine complaints Hematologic/Lymphatic: Reports no additional hematologic/lymphatic complaints Allergic/Immunologic: Reports no additional allergic/immunologic complaints Reports system reviewed and no additional complaints, except as documented and Reports Abnormal speech present [facility] Past Medical History Medical History No known health problems Social History Social History Alcohol intake: current Alcohol intake frequency: holidays/special occasions only Smoked in Last 30 Days: Yes Substance Use Type: Marijuana Advance Directives: No Advance Directives Information Provided: No Do you have a plan to hurt others: No Plan Physical Exam 2 Vital Signs: Vital Signs: Last Vital Signs Temp 97.8 F 08/10/23 02:40 Pulse 73 08/10/23 02:40 Resp 17 08/10/23 02:40 BP 109/69 08/10/23 02:40 Pulse Ox 98 08/10/23 02:40 O2 Del Method Room Air 08/10/23 02:40 BMI result Body Mass Index 24.8 Vital signs have been reviewed and appear to be correct. Blood pressure elevated. Heart rate normal. Respiratory rate normal. Temperature normal. Oxygen saturation normal. Appearance: Alert. Oriented X3. No acute distress. Head: Normal external exam. Normocephalic. Atraumatic. No Herrera signs noted. No raccoon eyes noted Eyes: PERRLA. EOMI. Conjunctiva and sclera normal. Eyelids normal. ENT: TM's Normal. Pharynx normal. Uvula midline. Moist mucous membranes. No trismus noted. No drooling noted. No muffled voice noted. Neck: Normal inspection. Neck supple. FROM. No adenopathy. Thyroid Normal. No meningeal signs. No neck mass noted. CVS: Normal heart rate and rhythm. Heart sound normal. No murmurs noted. Pulses normal throughout. Respiratory: No respiratory distress. Painless inspiration. Breath sounds normal. No wheezes/rales/rhonchi noted. Chest nontender. No accessory muscle usage noted or decreased air movement noted. Abdomen: Soft and nontender. Bowel sounds normal in all 4 quadrants. No distention noted. No organomegaly noted. No visible injury noted. Back: No CVA tenderness. Full range of motion noted. Skin: Skin warm and dry. Normal skin color. Normal skin turgor. No rashes/lesions/lacerations noted. Extremities: No lower extremity edema. Extremities exhibit normal range of motion. Extremities nontender. Neuro: Oriented X 3. Cranial nerve exam: II-XII are grossly intact No motor deficit. No sensory deficit. Reflexes normal. HEENT: Teeth image: 1. Dental rachelle with tenderness to touch, no gum swelling or fluctuation, no abscess is appreciated. Course Reevaluation(s) Reevaluation #1: Dental pain will start on amoxicillin and NSAIDs if needed for pain patient needs to follow-up with a dentist. Time: 03:48 Medical Decision Making Differential Diagnosis Differential Diagnoses: The differential diagnosis associated with the presentation includes (Dental rachelle, dental abscess, gingivitis.) Admission/Observation Consideration of admission/observation: Escalation of care including admission/observation considered Discharge Plan Discharge Clinical Impression: Toothache Patient Disposition: Home, Self-Care Instructions: Toothache (ED) Additional Instructions: Follow-up with your dentist. Prescriptions: New amoxicillin 500 mg tablet 500 mg PO BID Qty: 14 0RF ibuprofen 600 mg tablet 600 mg PO Q8H PRN (Reason: pain) Qty: 20 0RF No Action prednisone 20 mg tablet 20 mg PO DAILY Qty: 5 0RF tamsulosin [Flomax] 0.4 mg capsule 0.4 mg PO BEDTIME Qty: 4 0RF valacyclovir [Valtrex] 1 gram tablet 1,000 mg PO BID Qty: 14 0RF doxycycline monohydrate 100 mg capsule 100 mg PO BID Qty: 14 0RF albuterol sulfate 90 mcg/actuation aerosol powdr breath activated 2 inh inhalation Q4-6H PRN (Reason: shortness of breath or wheezing) Qty: 1 0RF penicillin V potassium 500 mg tablet 500 mg PO TID Qty: 30 0RF penicillin V potassium 500 mg tablet 500 mg PO BID 10 Days Qty: 20 0RF naproxen 500 mg tablet 500 mg PO BID 7 Days Qty: 14 0RF chlorhexidine gluconate [Peridex] 0.12 % mouthwash 15 ml buccal BID Qty: 118 0RF naproxen 500 mg tablet 500 mg PO BID PRN (Reason: pain) Qty: 20 0RF tramadol 50 mg tablet 50 mg PO Q6H PRN (Reason: pain) Qty: 16 0RF ibuprofen 600 mg tablet 600 mg PO Q6H PRN (Reason: fever or pain) Qty: 30 0RF amoxicillin-pot clavulanate 875-125 mg tablet 1 tab PO BID Qty: 20 0RF amoxicillin 500 mg tablet 500 mg PO BID Qty: 20 0RF ibuprofen 800 mg tablet 800 mg PO Q8H PRN (Reason: pain) Qty: 20 0RF ketorolac 10 mg tablet 10 mg PO TID PRN (Reason: pain) 5 Days Qty: 15 0RF ketorolac 10 mg tablet 10 mg PO TID PRN (Reason: pain) 5 Days Qty: 15 0RF Print Language: Kazakh
[2023-08-10] MEDS: Ibuprofen 600 MG TABLET PO (03:51)
[2023-08-10] MEDS: Amoxicillin 500 MG CAPSULE PO (03:52)
[2023-08-10 03:55] VITALS: BP 101/65; PULSE 77; RESP 14; TEMP 36.8; O2SAT 96
[2023-08-10 03:56] VITALS: BP 101/65; PULSE 77; RESP 14; TEMP 36.8; O2SAT 96
== END 2023-08-10 03:57 | disposition home or self-care (01) ==
PROVIDERS: Emergency Provider Emergency Medicine
DX: K08.89 Other specified disorders of teeth and supporting structures (principal)
CPT/HCPCS: 99283; 99284

== ENCOUNTER 2023-08-12 23:41 | Emergency (ER) | payer SELFPAY ==
[2023-08-12 23:45] VITALS: BP 133/87; PULSE 69; RESP 16; TEMP 36.3; O2SAT 98; BMI 21.6
--- NOTE | 2023-08-13 | ED_ITS ---
HPI - Dental/Oral General Chief complaint: Dental/Oral Stated complaint: tooth paun Time Seen by Provider: 08/12/23 23:50 Source: patient Mode of arrival: ambulatory Limitations: no limitations History of Present Illness ED Provider: Dr. Ritika Bustamante HPI Narrative: patient comes to the emergency room complaining of dental pain. Patient has had chronic dental pain in the left mandible inside for over a year. Patient has been seen by his dentist several times. Patient has had tooth extractions. patient states that he recently started having pain again, about 2 weeks ago he finished a course of antibiotics with penicillin. Related Data Previous Rx's ?Medication ?Instructions ?Recorded tamsulosin 0.4 mg capsule (Flomax) 0.4 mg PO BEDTIME #4 caps 12/18/19 prednisone 20 mg tablet 20 mg PO DAILY #5 tabs 12/19/19 doxycycline monohydrate 100 mg 100 mg PO BID #14 caps 11/22/20 capsule valacyclovir 1 gram tablet 1,000 mg PO BID #14 tabs 11/22/20 (Valtrex) albuterol sulfate 90 mcg/actuation 2 inh inhalation Q4-6H PRN 01/22/22 breath activated powder inhaler shortness of breath or wheezing #1 ea penicillin V potassium 500 mg 500 mg PO TID #30 tabs 07/05/22 tablet amoxicillin 500 mg tablet 500 mg PO BID #20 tabs 10/10/22 ibuprofen 800 mg tablet 800 mg PO Q8H PRN pain #20 tabs 10/10/22 ketorolac 10 mg tablet 10 mg PO TID PRN pain 5 days #15 03/04/23 tabs ketorolac 10 mg tablet 10 mg PO TID PRN pain 5 days #15 03/11/23 tabs chlorhexidine gluconate 0.12 % 15 ml buccal BID #118 mL 06/14/23 mouthwash (Peridex) naproxen 500 mg tablet 500 mg PO BID 7 days #14 tabs 06/14/23 penicillin V potassium 500 mg 500 mg PO BID 10 days #20 tabs 06/14/23 tablet naproxen 500 mg tablet 500 mg PO BID PRN pain #20 tabs 07/06/23 tramadol 50 mg tablet 50 mg PO Q6H PRN pain #16 tabs 07/06/23 amoxicillin 875 mg-potassium 1 tab PO BID #20 tabs 08/02/23 clavulanate 125 mg tablet ibuprofen 600 mg tablet 600 mg PO Q6H PRN fever or pain 08/02/23 #30 tabs amoxicillin 500 mg tablet 500 mg PO BID #14 tabs 08/10/23 ibuprofen 600 mg tablet 600 mg PO Q8H PRN pain #20 tabs 08/10/23 Lactobacillus rhamnosus GG 15 1 cap PO DAILY #30 caps 08/12/23 billion cell sprinkle capsule (Culturelle) clindamycin HCl 150 mg capsule 150 mg PO TID 10 days #30 caps 08/12/23 Allergies Allergy/AdvReac Type Severity Reaction Status Date / Time Iodine and Iodide Containing Allergy Rash Verified 08/12/23 23:46 Produc Review of Systems Review of Systems: Constitutional : No Weight loss, No Fever, No Chills, No Night Sweats, No Fatigue, No Malaise ENT/Mouth : Complaining of mandibular pain on the left side, No Hearing loss, No Ear Pain, No Nasal Congestion, No Sinus Pain, No Hoarseness, No sore throat, No Rhinorrhea, No Swallowing Difficulty Eyes: No Eye Pain, No Swelling, No Redness, No Foreign Body, No Discharge, No Vision Changes Cardiovascular : No Chest Pain, No SOB, No Dyspnea on Exertion, No Orthopnea, No Edema, No Palpitations Respiratory : No Cough, No Sputum, No Wheezing, No Smoke Exposure, No Dyspnea Gastrointestinal : No Nausea, No Vomiting, No Diarrhea, No Constipation, No abdominal Pain, No Hematochezia, No Melena Genitourinary : no irregular bleeding, No Dysuria, No Urinary Frequency, No Hematuria, No Urinary Incontinence, No Urgency, No Flank Pain, No Urinary Flow Changes, No Hesitancy Musculoskeletal : No joint pain, No Myalgias, No Joint Swelling Skin : No Skin Lesions, No rash Neuro : No Weakness, No Numbness, No Paresthesias, No Loss of Consciousness, No Dizziness, No Headache Psych : No Anxiety/Panic, No Depression, No SI/HI/AH/VH, No Social Issues, Heme/Lymph: No Bruising, No Bleeding,No Lymphadenopathy Endocrine : No Polyuria, No Polydipsia, No Temperature Intolerance PMFSH Past Medical History Medical History No known health problems Social History Social History Alcohol intake: current Alcohol intake frequency: holidays/special occasions only Substance Use Type: Marijuana Advance Directives: No Advance Directives Information Provided: Yes Do you have a plan to hurt others: No Plan Physical Exam Vital Signs: Vital Signs: Last Vital Signs Temp 97.3 F 08/12/23 23:45 Pulse 69 08/12/23 23:45 Resp 16 08/12/23 23:45 BP 133/87 08/12/23 23:45 Pulse Ox 98 08/12/23 23:45 O2 Del Method Room Air 08/12/23 23:45 BMI result Body Mass Index 21.6 Const: Other: Appearance: Alert. Oriented X3. No acute distress. Eyes: Pupils equal, round and reactive to light. ENT: Pharynx normal. there is erythema on the mandibular side on the left side. There is no visualized abscess Neck: Normal inspection. Neck supple. No lymph nodes noted. No crepitus CVS: Normal heart rate and rhythm. Pulses normal. Normal S1 and S2 Respiratory: No respiratory distress. Breath sounds normal. No Wheezing. No rales Abdomen: Soft and nontender. No rigidity. No distention. Skin: Skin warm and dry. Normal skin color. Normal skin turgor. Extremities: No lower extremity edema. No Lacerations. No Rash Neuro: Oriented X 3. No motor deficit. No sensory deficit. Moving all extremities. No slurred speech. CN 2 through 12 grossly intact Psych: calm, cooperative, normal affect Medical Decision Making Medical Decision Making MDM Narrative: - I discussed with the patient that we can switch his antibiotic to a stronger wound, clindamycin. However, I discussed with the patient that this antibiotic is not to be used long-term. Even with a few doses he can develop C diff infection, patient was instructed to eat a lot of yogurt and probiotics were sent to his pharmacy. Patient understands that this medication will not be provided for him routinely, patient agrees. Patient has an appointment pending with his dentist Discharge Plan Discharge Clinical Impression: Toothache Patient Disposition: Home, Self-Care Instructions: Toothache (ED) Additional Instructions: Please follow-up with your primary care physician tomorrow. If you have any worsening or new symptoms, please return to the emergency room or call 911 Prescriptions: New clindamycin HCl 150 mg capsule 150 mg PO TID 10 Days Qty: 30 0RF Culturelle 15 billion cell capsule, sprinkle 1 cap PO DAILY Qty: 30 0RF No Action prednisone 20 mg tablet 20 mg PO DAILY Qty: 5 0RF tamsulosin [Flomax] 0.4 mg capsule 0.4 mg PO BEDTIME Qty: 4 0RF valacyclovir [Valtrex] 1 gram tablet 1,000 mg PO BID Qty: 14 0RF doxycycline monohydrate 100 mg capsule 100 mg PO BID Qty: 14 0RF albuterol sulfate 90 mcg/actuation aerosol powdr breath activated 2 inh inhalation Q4-6H PRN (Reason: shortness of breath or wheezing) Qty: 1 0RF penicillin V potassium 500 mg tablet 500 mg PO TID Qty: 30 0RF penicillin V potassium 500 mg tablet 500 mg PO BID 10 Days Qty: 20 0RF naproxen 500 mg tablet 500 mg PO BID 7 Days Qty: 14 0RF chlorhexidine gluconate [Peridex] 0.12 % mouthwash 15 ml buccal BID Qty: 118 0RF naproxen 500 mg tablet 500 mg PO BID PRN (Reason: pain) Qty: 20 0RF tramadol 50 mg tablet 50 mg PO Q6H PRN (Reason: pain) Qty: 16 0RF ibuprofen 600 mg tablet 600 mg PO Q6H PRN (Reason: fever or pain) Qty: 30 0RF amoxicillin-pot clavulanate 875-125 mg tablet 1 tab PO BID Qty: 20 0RF amoxicillin 500 mg tablet 500 mg PO BID Qty: 20 0RF ibuprofen 800 mg tablet 800 mg PO Q8H PRN (Reason: pain) Qty: 20 0RF ketorolac 10 mg tablet 10 mg PO TID PRN (Reason: pain) 5 Days Qty: 15 0RF ketorolac 10 mg tablet 10 mg PO TID PRN (Reason: pain) 5 Days Qty: 15 0RF amoxicillin 500 mg tablet 500 mg PO BID Qty: 14 0RF ibuprofen 600 mg tablet 600 mg PO Q8H PRN (Reason: pain) Qty: 20 0RF Print Language: [place]isian
--- NOTE | 2023-08-13 | PC.NURSE ---
Eval by MD in triage, cleared for dc home.
[2023-08-13 00:03] VITALS: BP 00/00; PULSE 0; RESP 0; TEMP -17.7; TEMP 0; O2SAT 0
== END 2023-08-13 00:03 | disposition home or self-care (01) ==
PROVIDERS: Emergency Provider Emergency Medicine
DX: K08.89 Other specified disorders of teeth and supporting structures (principal); Z79.899 Other long term (current) drug therapy
CPT/HCPCS: 99282